=== PATIENT | female | born 1960 | race Caucasian/White ===

== ENCOUNTER → 2018-09-09 14:16 | Outpatient (CLI) | payer OTHER, SELFPAY ==
[2018-09-09 15:03] LABS: BUN Creatinine Ratio 23.3 (6-22); Blood Urea Nitrogen 21 mg/dL (7-17); Calcium 9.1 mg/dL (8.4-10.2); Carbon Dioxide 28 mmol/L (22-32); Chloride 105 mmol/L (98-107); Estimated Glomerular Filt Rate > 60.0 mL/min (>60); Glucose 85 mg/dL (70-100); HEMOLYSIS < 15 (0-50); Potassium 4.3 mmol/L (3.4-5.1); Sodium 138 mmol/L (137-145)
== END ==
PROVIDERS: Family Provider Family Medicine; PCP Family Medicine; Visit Provider Nurse Practitioner Family
DX: Z79.899 Other long term (current) drug therapy (principal)
CPT/HCPCS: 36415; 80048

== ENCOUNTER → 2019-05-16 10:50 | Outpatient (CLI) | payer OTHER, SELFPAY ==
[2019-05-16 11:04] LABS: Add Manual Diff / Slide Review NO; Basophils Absolute Auto 100 /uL (0-100); Basophils Percent Auto 1.4 % (0-2); Eosinophils Absolute Auto 100 /uL (0-450); Eosinophils Percent Auto 1.9 % (2-4); Hematocrit 48.1 % (36-46); Hemoglobin 16.3 g/dL (12.0-16.0); Lymphocytes Absolute Auto 1800 /uL (1100-4500); Lymphocytes Percent Auto 28.1 % (25-40); Mean Corpuscular HGB Conc 33.9 % (30-36); Mean Corpuscular Hemoglobin 30.1 PG (26-34); Mean Corpuscular Volume 88.8 fL (80-100); Monocytes Absolute Auto 400 /uL (0-900); Monocytes Percent Auto 7.1 % (3-14); Neutrophils Absolute Auto 3800 /uL (1500-7000); Neutrophils Percent Auto 61.5 % (50-75); Platelet Count 262 X10^3/uL (150-400); Red Blood Cell Count 5.42 X10^6/uL (4.0-5.2); Red Cell Distribution Width 13.1 % (11.6-14.8); White Blood Cell Count 6.3 X10^3/uL (4.5-11.0)
[2019-05-16 11:42] LABS: Alanine Aminotransferase 25 IU/L (<35); Albumin 4.4 g/dL (3.5-5.0); Albumin Globulin Ratio 1.5 (1.0-2.8); Alkaline Phosphatase 89 U/L (38-126); Aspartate Aminotransferase 33 IU/L (14-36); BUN Creatinine Ratio 27.1 (6-22); Bilirubin Total 0.7 mg/dL (0.2-1.3); Blood Urea Nitrogen 19 mg/dL (7-17); Calcium 9.7 mg/dL (8.4-10.2); Carbon Dioxide 25 mmol/L (22-32); Chloride 104 mmol/L (98-107); Cholesterol 232 mg/dL (140-199); Estimated Glomerular Filt Rate > 60.0 mL/min (>60); Glucose 94 mg/dL (70-100); HDL Cholesterol 64 mg/dL (40-60); HEMOLYSIS 27 (0-50); LDL Cholesterol Calculated 155 mg/dL (<100); Potassium 4.7 mmol/L (3.4-5.1); Sodium 138 mmol/L (137-145); Total Protein 7.4 g/dL (6.3-8.2); Triglycerides 65 mg/dL (35-150)
[2019-05-16 12:13] LABS: Thyroid Stimulating Hormone 0.88 uIU/mL (0.47-4.68)
== END ==
PROVIDERS: Family Provider Family Medicine; PCP Family Medicine; Referring Provider Family Medicine; Visit Provider Family Medicine
DX: I10 Essential (primary) hypertension (principal)
CPT/HCPCS: 36415; 80053; 80061; 84443; 85025

== ENCOUNTER → 2020-08-06 10:20 | Outpatient (CLI) | payer OTHER, SELFPAY ==
[2020-08-06 11:52] LABS: Add Manual Diff / Slide Review NO; Basophils Absolute Auto 100 /uL (0-100); Basophils Percent Auto 1.5 % (0-2); Eosinophils Absolute Auto 200 /uL (0-450); Eosinophils Percent Auto 4.2 % (2-4); Hematocrit 44.9 % (36-46); Hemoglobin 15.5 g/dL (12.0-16.0); Lymphocytes Absolute Auto 1800 /uL (1100-4500); Lymphocytes Percent Auto 32.7 % (25-40); Mean Corpuscular HGB Conc 34.4 % (30-36); Mean Corpuscular Hemoglobin 29.9 PG (26-34); Monocytes Absolute Auto 400 /uL (0-900); Monocytes Percent Auto 7.3 % (3-14); Neutrophils Absolute Auto 2900 /uL (1500-7000); Neutrophils Percent Auto 54.3 % (50-75); Platelet Count 244 X10^3/uL (150-400); Red Blood Cell Count 5.16 X10^6/uL (4.0-5.2); Red Cell Distribution Width 13.3 % (11.6-14.8); White Blood Cell Count 5.4 X10^3/uL (4.5-11.0)
[2020-08-06 12:11] LABS: Alanine Aminotransferase 27 IU/L (<35); Albumin Globulin Ratio 1.4 (1.0-2.8); Alkaline Phosphatase 93 U/L (38-126); Aspartate Aminotransferase 31 IU/L (14-36); BUN Creatinine Ratio 22.7 (6-22); Bilirubin Total 0.4 mg/dL (0.2-1.3); Blood Urea Nitrogen 17 mg/dL (7-17); Calcium 9.6 mg/dL (8.4-10.2); Carbon Dioxide 23 mmol/L (22-32); Chloride 106 mmol/L (98-107); Cholesterol 226 mg/dL (140-199); Estimated Glomerular Filt Rate > 60.0 mL/min (>60); Globulin 2.8 g/dL (1.7-4.1); Glucose 88 mg/dL (70-100); HDL Cholesterol 72 mg/dL (40-60); HEMOLYSIS < 15 (0-50); LDL Cholesterol Calculated 143 mg/dL (<100); Potassium 4.3 mmol/L (3.4-5.1); Sodium 138 mmol/L (137-145); Total Protein 6.8 g/dL (6.3-8.2); Triglycerides 54 mg/dL (35-150)
[2020-08-06 13:21] LABS: Creatinine Urine Random 145.9 mg/dL
[2020-08-06 13:26] LABS: Microalbumi Creatinin Ratio Ur 6.1 ug/mg CR (<30); Microalbumin Urine Random 0.9 mg/dL (0-1.6)
== END ==
PROVIDERS: Family Provider Family Medicine; PCP Family Medicine; Referring Provider Family Medicine; Visit Provider Family Medicine
DX: D58.2 Other hemoglobinopathies (principal); I10 Essential (primary) hypertension
CPT/HCPCS: 36415; 80053; 80061; 82043; 82570; 84443; 85025

== ENCOUNTER → 2020-08-15 07:37 | Outpatient (CLI) | payer OTHER, SELFPAY ==
[2020-08-16 11:21] LABS: Fecal Immunochemical Test Negative (Negative)
== END ==
PROVIDERS: Family Provider Family Medicine; PCP Family Medicine; Referring Provider Family Medicine; Visit Provider Family Medicine
DX: Z00.01 Encounter for general adult medical examination with abnormal findings (principal)
CPT/HCPCS: 82274

== ENCOUNTER → 2020-11-14 11:47 | Outpatient (CLI) | payer OTHER, SELFPAY ==
[2020-11-14 12:48] LABS: COVID19 -Nasal RAPID Negative (Negative)
== END ==
PROVIDERS: Family Provider Family Medicine; PCP Family Medicine; Visit Provider Physician Assistant
DX: J34.89 Other specified disorders of nose and nasal sinuses (principal); R05 Cough; Z20.822 Contact with and (suspected) exposure to COVID-19
CPT/HCPCS: 87635

== ENCOUNTER 2021-04-17 15:00 | Outpatient (RCR) | payer OTHER, SELFPAY ==
--- NOTE | 2021-01-02 16:01 | PT.OIE ---
Current Diagnoses Cystocele, midline (01/02/21) Urgency of urination (01/02/21) Past Medical History (Last Reviewed 11/14/20 @ 12:47 by Osmin Agosto PA-C) Acne Figueroa's palsy (~2003) Chicken pox (~1968) History of hernia repair (~1999) Status post laparoscopic surgery (~1990) Vertigo (~2008) Past Surgical History (Last Updated 08/23/20 @ 19:00 by Kate Russ) Anesthesia History of hernia repair (~1999) Status post laparoscopic surgery (~1990) Visit Care Team Role Provider Type Juventino Teran MD Primary Care Provider Physician Specialty: Family Practice Address: [address] [place] [address] Email: [email or web address] Radha Everett MD Attending Provider Physician Referring Provider Specialty: FISH HATCHERY WORKER Address: [address] [place] [address], [id number] Email: [email or web address] Physical Therapy Initial Evaluation PT-OP-A Visit Information Start: 12/29/20 17:45 Freq: Status: Active Protocol: Document 01/02/21 14:23 LRN (Rec: 01/02/21 15:08 LRN [id number]) Out-Patient Physical Therapy Visit Information Visit Information Visit Type Initial Evaluation Visit Start Time 14:23 Visit Stop Time 15:08 Total Visit Minutes 45 Visit Number 1 Evaluation Information Evaluation Date 01/02/21 Precautions Precautions Controlled HBP, General LBP for years from repetitive use. PT-OP-B Current Condition Start: 12/29/20 17:45 Freq: Status: Active Protocol: Document 01/02/21 14:23 LRN (Rec: 01/02/21 15:08 LRN [id number]) Current Condition History of Current Condition Onset Date 6 months Current Complaints Urinary urgency is the primary problem. Now and again will leak. History of Current Condition Urinary urgency. Has gradually gotten worse over the years and now she feels her organs are further south than they use to be. Prior Treatments and Tests Chiropractic treatment for years for low back pain. Developmental History Developmental History 1 child 31 yrs ago, vaginal without complications. Treatment Goals Patient/Caregiver Goals Pt goal is: not be triggered to urinate when walking by bathroom. to decrease trigger responses (pulling into house, walking into a cold room). 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 Wears pantiliners all the time , since youth. Current Functional Impairments (Reported) Functional Limitations- ADL's Urinating every hour in mornings. In afternoons not as frequent. Occasionally wets underwear. Most of the time barely makes it to the bathroom. Urinates 10x/day and 1x in evening. Personal Factors Other Personal Factors That May Effect Works FT @ [employer] early Therapy/Recovery morning shift, with break every 2 hours. PT-OP-C Subjective Start: 12/29/20 17:45 Freq: Status: Active Protocol: Document 01/02/21 14:23 LRN (Rec: 01/02/21 15:08 LRN [id number]) Patient Questionnaires Pelvic Pain and Urgency/Frequency Patient Symptom Scale Pelvic Pain Score 5 PT-OP-I Pelvic Floor Start: 12/29/20 17:45 Freq: Status: Active Protocol: Document 01/02/21 14:23 LRN (Rec: 01/02/21 15:51 LRN [id number]) Pelvic Floor Assessment Urine Pelvic Floor Surgery No Urinary Symptoms Urge Sensation,Prolapse Leakage Cause Urge Voiding Frequency 10x/day Nocturia 1x/night Urine Pad Type Panty Liner Pelvic Clock Pelvic Clock 3-6 Tightness Prolapse Cystocele Grade 2 Rectocele Grade 2 Prolapse Comments Assessed in supine. Contraction Ability Voluntary Contraction Weak Manual Muscle Testing Left 0 Manual Muscle Testing Right 1 Manual Muscle Testing Anterior 0 Manual Muscle Testing Posterior 0 Muscle Endurance (Seconds) 0 Number of Quick Contractions In 10 0 Seconds PT-OP-J Posture/Palpation/Skin Start: 12/29/20 17:45 Freq: Status: Active Protocol: Document 01/02/21 14:23 LRN (Rec: 01/02/21 15:08 LRN [id number]) Posture Evaluation Position Standing Head/C-Spine Posture Forward Head T-Spine Posture Flattened L-Spine Posture Increased Lordosis Pelvis Posture Anteriorly Tilted PT-OP-K Range of Motion Start: 12/29/20 17:45 Freq: Status: Active Protocol: Document 01/02/21 14:23 LRN (Rec: 01/02/21 15:08 LRN [id number]) Lumbar Spine Range of Motion Lumbar Spine Active Degrees Testing Position Standing Flexion 75 Extension 15 Lateral Flexion Left 15 Lateral Flexion Right 12 Hip Goniometric Range of Motion Hip Right Passive Testing Position Supine Flexion w/Knee Flexed 120 Straight Leg Raise 85 Internal Rotation 50 External Rotation 40 Left Passive Testing Position Supine Flexion w/Knee Flexed 110 Straight Leg Raise 80 Internal Rotation 35 External Rotation 50 PT-OP-M Strength Start: 12/29/20 17:45 Freq: Status: Active Protocol: Document 01/02/21 14:23 LRN (Rec: 01/02/21 15:08 LRN [id number]) Trunk Strength Trunk Manual Muscle Testing Testing Position Supine, Sidelie, Prone Comments Lacks core control w/MMT of LE 's. Hip Strength Hip Manual Muscle Testing Right Flexion (L2) 5 Normal Extension (S1) 3 Fair Abduction 5 Normal Adduction 3 Fair External Rotation 5 Normal Internal Rotation 5 Normal Left Flexion (L2) 3+ Fair+ Extension (S1) 3 Fair Abduction 5 Normal Adduction 3+ Fair+ External Rotation 3 Fair Internal Rotation 5 Normal PT-OP-Q Treatments Start: 12/29/20 17:45 Freq: Status: Active Protocol: Document 01/02/21 14:23 LRN (Rec: 01/02/21 15:08 LRN [id number]) Self-Care/Home Management Treatment Education Patient Education Home Exercise Program Other Education Discussed results of evaluation, goals and plan of care. Pt agreeable to goals and plan of care. Educated pt in Bladder Diary and instructed in tracking for 1 weeks. Discussed use of 2 different diaries for tracking . Activities Self-Care/Home Management Activities Issued & reviewed handouts for [employer] for Quick Flicks, Long Hololds & discussed aggrevators. PT-OP-T Assessment and Plan Start: 12/29/20 17:45 Freq: Status: Active Protocol: Document 01/02/21 14:23 LRN (Rec: 01/02/21 15:08 LRN [id number]) Physical Therapy Assessment Rehab Potential Rehabilitation Potential Good Evaluation Complexity Number of Personal Factors/Comorbidities 1-2 Number of Body Systems Impaired 3 Clinical Presentation at Evaluation Stable Impairments Impairments Posture,ROM,Strength Goals Three Impairment Decreased PF strength (0-1/5) Impairment 7-10 O'Clock rated 1/5, 2-6 O'Clock 0/5. Short Term Goal (STG) Improve PF strength to 2/5 with pt will be able to walk by her bathroom without having to stop to urinate. STG Duration 02/01/21 Supervisor Riprap Placing Goal (LTG) Improve PF strength to 3/5 with pt able to hold a PF contraction no less than 3 secs and perform 5-6 quick squeezes prior to fatigue, for delaying urination with the delay technique. LTG Duration 03/17/21 Two Impairment Urinary urgency Short Term Goal (STG) Pt will be educated in urinary delay technique. STG Duration 01/09/21 Supervisor Riprap Placing Goal (LTG) Pt will be able to control her urgency when pulling up to her house and walk into the cold room of her work place. LTG Duration 03/17/21 One Impairment Lacks appropriate self care HEP. Supervisor Riprap Placing Goal (LTG) Pt will be independent in a self care HEP of hip/LB flexibility ex's & PF strengthening. LTG Duration 03/17/21 Assessment Summary Assessment Pt presents with urinary urgency and occasional urinary leakage that is severe in nature, wetting her underwear. Most of the time her leakage is small and she wears daily pantiliners. Her external PF tissues appear dry. She demonstrates a cystocele and rectocele with the rectocele worsening with valsa type manuever. With palpation she shows extreme weakness of the PF and has no palpable contraction of the posterior, left lateral wall and anterior PF. She has very minimal palpable contraction on the right lateral wall. The pt denies constipation history. Her postural deviations ( excessive lumbar lordosis) and chronic back pain may be a hindrance to the pt's progression. The pt will benefit from skilled physical therapy to work towards achieving the above stated goals. Physical Therapy Plan Frequency and Duration Frequency of Treatment 1x/Week Plan of Care Start Date 01/02/21 Plan of Care End Date 03/17/21 Therapeutic Interventions Therapeutic Interventions Home Exercise Program,Joint Mobilizations,Manual Therapy, Neuromuscular Re-education, Patient/Caregiver Education, Self-Care/Home Management,Soft Tissue Mobilization,Taping, Therapeutic Activities, Therapeutic Exercises Modalities Cold Pack/Ice Massage,Electric Stimulation,Hot Packs Next Visit Focus/Plan Next Visit Plan Review bladder diary, discuss foods, and water intake, Kegel with use of substitute muscles, pt education in proper vulvar/ genital care, deep breathing and transfers, PF/core activation, hip strengthening (AD, ext, only L side: flex, ER), improve hip mobility (L: IR, KTC SLR; R: ER), Assess abdominal soft tissue ( bladder) mobility. TA strengthening, educate pt in proper squatting and lifting, sit to stand, and moving in bed using breathwork and PF/core stabilization for proper abdominal pressure system, teach isolated Kegels for exercise and auto TA/PF contraction for pelvic stabilization.
--- NOTE | 2021-01-02 16:02 | PT.OPPOC ---
Physical, Occupational & Speech Therapy At [facility] Current Diagnoses Cystocele, midline (01/02/21) Urgency of urination (01/02/21) Visit Care Team Role Provider Type Juventino Teran MD Primary Care Provider Physician Specialty: Family Practice Address: [address] [place] [address] Email: [email or web address] Radha Everett MD Attending Provider Physician Referring Provider Specialty: TOE STRIPPER Address: [address] [place] [address], [address] Email: [email or web address] Plan Of Care PT-OP-T Assessment and Plan Start: 12/29/20 17:45 Freq: Status: Active Protocol: Document 01/02/21 14:23 LRN (Rec: 01/02/21 15:08 LRN [id number]) Physical Therapy Assessment Rehab Potential Rehabilitation Potential Good Evaluation Complexity Number of Personal Factors/Comorbidities 1-2 Number of Body Systems Impaired 3 Clinical Presentation at Evaluation Stable Impairments Impairments Posture,ROM,Strength Goals Three Impairment Decreased PF strength (0-1/5) Impairment 7-10 O'Clock rated 1/5, 2-6 O'Clock 0/5. Short Term Goal (STG) Improve PF strength to 2/5 with pt will be able to walk by her bathroom without having to stop to urinate. STG Duration 02/01/21 Tumbling Instructor Goal (LTG) Improve PF strength to 3/5 with pt able to hold a PF contraction no less than 3 secs and perform 5-6 quick squeezes prior to fatigue, for delaying urination with the delay technique. LTG Duration 03/17/21 Two Impairment Urinary urgency Short Term Goal (STG) Pt will be educated in urinary delay technique. STG Duration 01/09/21 Tumbling Instructor Goal (LTG) Pt will be able to control her urgency when pulling up to her house and walk into the cold room of her work place. LTG Duration 03/17/21 One Impairment Lacks appropriate self care HEP. Long-Term Goal (LTG) Pt will be independent in a self care HEP of hip/LB flexibility ex's & PF strengthening. LTG Duration 03/17/21 Assessment Summary Assessment Pt presents with urinary urgency and occasional urinary leakage that is severe in nature, wetting her underwear. Most of the time her leakage is small and she wears daily pantiliners. Her external PF tissues appear dry. She demonstrates a cystocele and rectocele with the rectocele worsening with valsa type manuever. With palpation she shows extreme weakness of the PF and has no palpable contraction of the posterior, left lateral wall and anterior PF. She has very minimal palpable contraction on the right lateral wall. The pt denies constipation history. Her postural deviations ( excessive lumbar lordosis) and chronic back pain may be a hindrance to the pt's progression. The pt will benefit from skilled physical therapy to work towards achieving the above stated goals. Physical Therapy Plan Frequency and Duration Frequency of Treatment 1x/Week Plan of Care Start Date 01/02/21 Plan of Care End Date 03/17/21 Therapeutic Interventions Therapeutic Interventions Home Exercise Program,Joint Mobilizations,Manual Therapy, Neuromuscular Re-education, Patient/Caregiver Education, Self-Care/Home Management,Soft Tissue Mobilization,Taping, Therapeutic Activities, Therapeutic Exercises Modalities Cold Pack/Ice Massage,Electric Stimulation,Hot Packs Next Visit Focus/Plan Next Visit Plan Review bladder diary, discuss foods, and water intake, Kegel with use of substitute muscles, pt education in proper vulvar/ genital care, deep breathing and transfers, PF/core activation, hip strengthening (AD, ext, only L side: flex, ER), improve hip mobility (L: IR, KTC SLR; R: ER), Assess abdominal soft tissue ( bladder) mobility. TA strengthening, educate pt in proper squatting and lifting, sit to stand, and moving in bed using breathwork and PF/core stabilization for proper abdominal pressure system, teach isolated Kegels for exercise and auto TA/PF contraction for pelvic stabilization. Plan of Care Dates Plan of Care Start Date 01/02/21 Plan of Care End Date 03/17/21 Electronically Signed by: Cielo Coyne, PT 01/02/21 [id number] Please Sign and Return: I have reviewed this Plan of Care and certify that the skilled therapy services above are required to meet the patient?s needs. Physician Signature Date Printed Name and Credentials Clinical Instructor Signature Printed Name and Credentials
--- NOTE | 2021-01-09 15:27 | PT.OTN ---
Current Diagnoses Cystocele, midline (01/09/21) Urgency of urination (01/09/21) Physical Therapy Treatment Note PT-OP-A Visit Information Start: 12/29/20 17:45 Freq: Status: Active Protocol: Document 01/09/21 14:21 LRN (Rec: 01/09/21 15:25 LRN [id number]) Out-Patient Physical Therapy Visit Information Visit Information Visit Type Treatment Note Visit Start Time 14:21 Visit Stop Time 15:02 Total Visit Minutes 41 Visit Number 2 Evaluation Information Evaluation Date 01/02/21 Precautions Precautions Controlled HBP, General LBP for years from repetitive use. PT-OP-B Current Condition Start: 12/29/20 17:45 Freq: Status: Active Protocol: Document 01/02/21 14:23 LRN (Rec: 01/02/21 15:08 LRN [id number]) Current Condition History of Current Condition Onset Date 6 months Current Complaints Urinary urgency is the primary problem. Now and again will leak. History of Current Condition Urinary urgency. Has gradually gotten worse over the years and now she feels her organs are further south than they use to be. Prior Treatments and Tests Chiropractic treatment for years for low back pain. Developmental History Developmental History 1 child 31 yrs ago, vaginal without complications. Treatment Goals Patient/Caregiver Goals Pt goal is: not be triggered to urinate when walking by bathroom. to decrease trigger responses (pulling into house, walking into a cold room). 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 Wears pantiliners all the time , since youth. Current Functional Impairments (Reported) Functional Limitations- ADL's Urinating every hour in mornings. In afternoons not as frequent. Occasionally wets underwear. Most of the time barely makes it to the bathroom. Urinates 10x/day and 1x in evening. Personal Factors Other Personal Factors That May Effect Works FT @ [employer] early Therapy/Recovery morning shift, with break every 2 hours. PT-OP-C Subjective Start: 12/29/20 17:45 Freq: Status: Active Protocol: Document 01/09/21 14:21 LRN (Rec: 01/09/21 15:25 LRN [id number]) OP-PT Subjective Patient Comments Patient Comments Did bladder diary. Less urge to urinate when passing the bathroom. PT-OP-I Pelvic Floor Start: 12/29/20 17:45 Freq: Status: Active Protocol: Document 01/02/21 14:23 LRN (Rec: 01/02/21 15:51 LRN [id number]) Pelvic Floor Assessment Urine Pelvic Floor Surgery No Urinary Symptoms Urge Sensation,Prolapse Leakage Cause Urge Voiding Frequency 10x/day Nocturia 1x/night Urine Pad Type Panty Liner Pelvic Clock Pelvic Clock 3-6 Tightness Prolapse Cystocele Grade 2 Rectocele Grade 2 Prolapse Comments Assessed in supine. Contraction Ability Voluntary Contraction Weak Manual Muscle Testing Left 0 Manual Muscle Testing Right 1 Manual Muscle Testing Anterior 0 Manual Muscle Testing Posterior 0 Muscle Endurance (Seconds) 0 Number of Quick Contractions In 10 0 Seconds PT-OP-J Posture/Palpation/Skin Start: 12/29/20 17:45 Freq: Status: Active Protocol: Document 01/02/21 14:23 LRN (Rec: 01/02/21 15:08 LRN [id number]) Posture Evaluation Position Standing Head/C-Spine Posture Forward Head T-Spine Posture Flattened L-Spine Posture Increased Lordosis Pelvis Posture Anteriorly Tilted PT-OP-K Range of Motion Start: 12/29/20 17:45 Freq: Status: Active Protocol: Document 01/02/21 14:23 LRN (Rec: 01/02/21 15:08 LRN [id number]) Lumbar Spine Range of Motion Lumbar Spine Active Degrees Testing Position Standing Flexion 75 Extension 15 Lateral Flexion Left 15 Lateral Flexion Right 12 Hip Goniometric Range of Motion Hip Right Passive Testing Position Supine Flexion w/Knee Flexed 120 Straight Leg Raise 85 Internal Rotation 50 External Rotation 40 Left Passive Testing Position Supine Flexion w/Knee Flexed 110 Straight Leg Raise 80 Internal Rotation 35 External Rotation 50 PT-OP-M Strength Start: 12/29/20 17:45 Freq: Status: Active Protocol: Document 01/02/21 14:23 LRN (Rec: 01/02/21 15:08 LRN [id number]) Trunk Strength Trunk Manual Muscle Testing Testing Position Supine, Sidelie, Prone Comments Lacks core control w/MMT of LE 's. Hip Strength Hip Manual Muscle Testing Right Flexion (L2) 5 Normal Extension (S1) 3 Fair Abduction 5 Normal Adduction 3 Fair External Rotation 5 Normal Internal Rotation 5 Normal Left Flexion (L2) 3+ Fair+ Extension (S1) 3 Fair Abduction 5 Normal Adduction 3+ Fair+ External Rotation 3 Fair Internal Rotation 5 Normal PT-OP-Q Treatments Start: 12/29/20 17:45 Freq: Status: Active Protocol: Document 01/09/21 14:21 LRN (Rec: 01/09/21 15:25 LRN [id number]) Therapeutic Exercises Standing Exercises PF in Hamstring stretch position Standing Exercise Name PF contractions in hamstring stretch position & hip ER/IR Reps/Minutes 3' Comments Extra time for proper positioning and awareness educ of bladder positioning Self-Care/Home Management Treatment Education Other Education Review of bladder diary f/b education extensive discussions regarding: - Bladder Retraining (urge deference), - Foods/drinks theories/ suggestions (2 handouts) - Deep breathing properly with PF contractions. - Abdominal bracing with PF contractions. - PF/organs anatomy and associated cystocele, rectocele, uterocele and effects on each other. Activities Self-Care/Home Management Activities Issued handouts for bladder retraining (urge deference), food/drinks. PT-OP-T Assessment and Plan Start: 12/29/20 17:45 Freq: Status: Active Protocol: Document 01/09/21 14:21 LRN (Rec: 01/09/21 15:25 LRN [id number]) Physical Therapy Assessment Goals Three Impairment Decreased PF strength (0-1/5) Impairment 7-10 O'Clock rated 1/5, 2-6 O'Clock 0/5. Short Term Goal (STG) Improve PF strength to 2/5 with pt will be able to walk by her bathroom without having to stop to urinate. STG Duration 02/01/21 Vice President For Philanthropy Goal (LTG) Improve PF strength to 3/5 with pt able to hold a PF contraction no less than 3 secs and perform 5-6 quick squeezes prior to fatigue, for delaying urination with the delay technique. LTG Duration 03/17/21 Two Impairment Urinary urgency Short Term Goal (STG) Pt will be educated in urinary delay technique. STG Duration 01/09/21 (01/09/21: MET GOAL) Vice President For Philanthropy Goal (LTG) Pt will be able to control her urgency when pulling up to her house and walk into the cold room of her work place. LTG Duration 03/17/21 One Impairment Lacks appropriate self care HEP. Vice President For Philanthropy Goal (LTG) Pt will be independent in a self care HEP of hip/LB flexibility ex's & PF strengthening. LTG Duration 03/17/21 Assessment Summary Assessment Pt urgency probably related to pt taking caffeine pill in morning caffeine drinks ( coffee/tea) during the day. Urgency appears to be first in the morning. She was voiding 8-12x/days for the first 2 days, then ~7x/day with no significant change in her drinking schedule. Voiding times are mostly normal between 4-8 secs (most in PM and 1st in AM). Pt avoids water due to the increased voiding frequency when drinking water. If she maintains her current frequency of 7x/day, then focus will be on decreasing her prolapse with exercise and proper PF care. Physical Therapy Plan Frequency and Duration Frequency of Treatment 1x/Week Plan of Care Start Date 01/02/21 Plan of Care End Date 03/17/21 Next Visit Focus/Plan Next Note Type Treatment Note Next Visit Plan Kegel with use of substitute muscles, pt education in proper vulvar/ genital care, and PF/breathing with transfers, PF/core activation, hip strengthening (AD, ext, only L side: flex, ER), improve hip mobility (L: IR, KTC SLR; R: ER), Assess abdominal soft tissue ( bladder) mobility. TA strengthening, educate pt in proper squatting and lifting, sit to stand, and moving in bed using breathwork and PF/core stabilization for proper abdominal pressure system, teach isolated Kegels for exercise and auto TA/PF contraction for pelvic stabilization.
--- NOTE | 2021-01-23 17:04 | PT.OTN ---
Current Diagnoses Cystocele, midline (01/23/21) Urgency of urination (01/23/21) Physical Therapy Treatment Note PT-OP-A Visit Information Start: 12/29/20 17:45 Freq: Status: Active Protocol: Document 01/23/21 14:22 LRN (Rec: 01/23/21 15:07 LRN [id number]) Out-Patient Physical Therapy Visit Information Visit Information Visit Type Treatment Note Visit Start Time 14:22 Visit Stop Time 15:02 Total Visit Minutes 40 Visit Number 3 Evaluation Information Evaluation Date 01/02/21 Precautions Precautions Controlled HBP, General LBP for years from repetitive use. PT-OP-B Current Condition Start: 12/29/20 17:45 Freq: Status: Active Protocol: Document 01/02/21 14:23 LRN (Rec: 01/02/21 15:08 LRN [id number]) Current Condition History of Current Condition Onset Date 6 months Current Complaints Urinary urgency is the primary problem. Now and again will leak. History of Current Condition Urinary urgency. Has gradually gotten worse over the years and now she feels her organs are further south than they use to be. Prior Treatments and Tests Chiropractic treatment for years for low back pain. Developmental History Developmental History 1 child 31 yrs ago, vaginal without complications. Treatment Goals Patient/Caregiver Goals Pt goal is: not be triggered to urinate when walking by bathroom. to decrease trigger responses (pulling into house, walking into a cold room). 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 Wears pantiliners all the time , since youth. Current Functional Impairments (Reported) Functional Limitations- ADL's Urinating every hour in mornings. In afternoons not as frequent. Occasionally wets underwear. Most of the time barely makes it to the bathroom. Urinates 10x/day and 1x in evening. Personal Factors Other Personal Factors That May Effect Works FT @ [employer] early Therapy/Recovery morning shift, with break every 2 hours. PT-OP-C Subjective Start: 12/29/20 17:45 Freq: Status: Active Protocol: Document 01/23/21 14:22 LRN (Rec: 01/23/21 15:07 LRN [id number]) OP-PT Subjective Patient Comments Patient Comments No change. Being more mindful of the caffeine she drinks. Having urgency for the past few days. PT-OP-I Pelvic Floor Start: 12/29/20 17:45 Freq: Status: Active Protocol: Document 01/02/21 14:23 LRN (Rec: 01/02/21 15:51 LRN [id number]) Pelvic Floor Assessment Urine Pelvic Floor Surgery No Urinary Symptoms Urge Sensation,Prolapse Leakage Cause Urge Voiding Frequency 10x/day Nocturia 1x/night Urine Pad Type Panty Liner Pelvic Clock Pelvic Clock 3-6 Tightness Prolapse Cystocele Grade 2 Rectocele Grade 2 Prolapse Comments Assessed in supine. Contraction Ability Voluntary Contraction Weak Manual Muscle Testing Left 0 Manual Muscle Testing Right 1 Manual Muscle Testing Anterior 0 Manual Muscle Testing Posterior 0 Muscle Endurance (Seconds) 0 Number of Quick Contractions In 10 0 Seconds PT-OP-J Posture/Palpation/Skin Start: 12/29/20 17:45 Freq: Status: Active Protocol: Document 01/02/21 14:23 LRN (Rec: 01/02/21 15:08 LRN [id number]) Posture Evaluation Position Standing Head/C-Spine Posture Forward Head T-Spine Posture Flattened L-Spine Posture Increased Lordosis Pelvis Posture Anteriorly Tilted PT-OP-K Range of Motion Start: 12/29/20 17:45 Freq: Status: Active Protocol: Document 01/02/21 14:23 LRN (Rec: 01/02/21 15:08 LRN [id number]) Lumbar Spine Range of Motion Lumbar Spine Active Degrees Testing Position Standing Flexion 75 Extension 15 Lateral Flexion Left 15 Lateral Flexion Right 12 Hip Goniometric Range of Motion Hip Right Passive Testing Position Supine Flexion w/Knee Flexed 120 Straight Leg Raise 85 Internal Rotation 50 External Rotation 40 Left Passive Testing Position Supine Flexion w/Knee Flexed 110 Straight Leg Raise 80 Internal Rotation 35 External Rotation 50 PT-OP-M Strength Start: 12/29/20 17:45 Freq: Status: Active Protocol: Document 01/02/21 14:23 LRN (Rec: 01/02/21 15:08 LRN [id number]) Trunk Strength Trunk Manual Muscle Testing Testing Position Supine, Sidelie, Prone Comments Lacks core control w/MMT of LE 's. Hip Strength Hip Manual Muscle Testing Right Flexion (L2) 5 Normal Extension (S1) 3 Fair Abduction 5 Normal Adduction 3 Fair External Rotation 5 Normal Internal Rotation 5 Normal Left Flexion (L2) 3+ Fair+ Extension (S1) 3 Fair Abduction 5 Normal Adduction 3+ Fair+ External Rotation 3 Fair Internal Rotation 5 Normal PT-OP-Q Treatments Start: 12/29/20 17:45 Freq: Status: Active Protocol: Document 01/23/21 14:22 LRN (Rec: 01/23/21 15:07 LRN [id number]) Therapeutic Exercises Supine Exercises PF isolated contraction Supine Exercise Name Isolated PF contraction training Reps/Minutes 8' Comments Pt not able to isolate a PF contraction form the TA. Standing Exercises PF in Hamstring stretch position Standing Exercise Name PF contractions in hamstring stretch position & hip ER/IR Reps/Minutes 2' Therapeutic Activity Therapeutic Activity PF w/Sit<>Supine Name PF w/Sit<>Supine Reps/Minutes 3' Comments Training with sound of breathing. PF w/Sit to stand Name PF w/Sit<>stand Reps/Minutes 3' Comments Training with sound of breathing. Manual Therapy Treatment Soft Tissue Mobilization Iliopsoas Body Location R Iliopsoas Mobilization Type Myofascial Release,Sustained Pressure Body Position Supine Sacrum Body Location Inferior glide & PA mob L side of L sacrum Mobilization Type Myofascial Release Body Position Prone Rebalancing of Ischium and Ilium Body Location Ischium & Ilium Rebalancing, Ischium PA Mob Mobilization Type Myofascial Release,Sustained Pressure Body Position Prone Self-Care/Home Management Treatment Education Patient Education Home Exercise Program Activities Self-Care/Home Management Activities I/S pt in PF contraction in isolatioin of TA & Glut,and SKTC stretch. Issued & reviewed HEP: L Piriformis stretch and lateral hip stretch. PT-OP-T Assessment and Plan Start: 12/29/20 17:45 Freq: Status: Active Protocol: Document 01/23/21 14:22 LRN (Rec: 01/23/21 15:07 LRN [id number]) Physical Therapy Assessment Goals Three Impairment Decreased PF strength (0-1/5) Impairment 7-10 O'Clock rated 1/5, 2-6 O'Clock 0/5. Short Term Goal (STG) Improve PF strength to 2/5 with pt will be able to walk by her bathroom without having to stop to urinate. STG Duration 02/01/21 Electronic Publications Specialist Goal (LTG) Improve PF strength to 3/5 with pt able to hold a PF contraction no less than 3 secs and perform 5-6 quick squeezes prior to fatigue, for delaying urination with the delay technique. LTG Duration 03/17/21 Two Impairment Urinary urgency Short Term Goal (STG) Pt will be educated in urinary delay technique. STG Duration 01/09/21 (01/09/21: MET GOAL) Intermediate Goal (LTG) Pt will be able to control her urgency when pulling up to her house and walk into the cold room of her work place. LTG Duration 03/17/21 One Impairment Lacks appropriate self care HEP. Electronic Publications Specialist Goal (LTG) Pt will be independent in a self care HEP of hip/LB flexibility ex's & PF strengthening. LTG Duration 03/17/21 Assessment Summary Assessment + response to STM. Pt symmetry of contraction of PF felt in bilateral TA on contraction and elimination of R LBP in supine with PF tightening. Pt has fair understanding of L hip stretches; therefore review is needed. Physical Therapy Plan Frequency and Duration Frequency of Treatment 1x/Week Plan of Care Start Date 01/02/21 Plan of Care End Date 03/17/21 Next Visit Focus/Plan Next Note Type Treatment Note Next Visit Plan Review Kegel in isolation of TA & Hip Flexors, review L hip IR and SKTC stretch, Kegel with auto use of substitute muscles, pt education in proper vulvar/ genital care, PF/core activation, hip strengthening (AD, ext, only L side: flex, ER), improve hip mobility (L: SLR; R: ER), Assess abdominal soft tissue ( bladder) mobility. TA strengthening, educate pt in proper squatting and lifting, sit to stand, and moving in bed using breathwork and PF/core stabilization for proper abdominal pressure system, teach auto TA/PF contraction for pelvic stabilization.
--- NOTE | 2021-01-30 16:24 | PT.OTN ---
Current Diagnoses Cystocele, midline (01/30/21) Urgency of urination (01/30/21) Physical Therapy Treatment Note PT-OP-A Visit Information Start: 12/29/20 17:45 Freq: Status: Active Protocol: Document 01/30/21 15:17 LRN (Rec: 01/30/21 16:19 LRN [id number]) Out-Patient Physical Therapy Visit Information Visit Information Visit Type Treatment Note Visit Start Time 15:17 Visit Stop Time 15:57 Total Visit Minutes 40 Evaluation Information Evaluation Date 01/02/21 Precautions Precautions Controlled HBP, General LBP for years from repetitive use. PT-OP-B Current Condition Start: 12/29/20 17:45 Freq: Status: Active Protocol: Document 01/02/21 14:23 LRN (Rec: 01/02/21 15:08 LRN [id number]) Current Condition History of Current Condition Onset Date 6 months Current Complaints Urinary urgency is the primary problem. Now and again will leak. History of Current Condition Urinary urgency. Has gradually gotten worse over the years and now she feels her organs are further south than they use to be. Prior Treatments and Tests Chiropractic treatment for years for low back pain. Developmental History Developmental History 1 child 31 yrs ago, vaginal without complications. Treatment Goals Patient/Caregiver Goals Pt goal is: not be triggered to urinate when walking by bathroom. to decrease trigger responses (pulling into house, walking into a cold room). 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 Wears pantiliners all the time , since youth. Current Functional Impairments (Reported) Functional Limitations- ADL's Urinating every hour in mornings. In afternoons not as frequent. Occasionally wets underwear. Most of the time barely makes it to the bathroom. Urinates 10x/day and 1x in evening. Personal Factors Other Personal Factors That May Effect Works FT @ [employer] early Therapy/Recovery morning shift, with break every 2 hours. PT-OP-C Subjective Start: 12/29/20 17:45 Freq: Status: Active Protocol: Document 01/30/21 15:17 LRN (Rec: 01/30/21 16:19 LRN [id number]) OP-PT Subjective Patient Comments Patient Comments One incident had instanteous urge upon standing with a little leakage because able to stop the flow. Not able to stop flow before. PT-OP-I Pelvic Floor Start: 12/29/20 17:45 Freq: Status: Active Protocol: Document 01/30/21 15:17 LRN (Rec: 01/30/21 16:23 LRN [id number]) Pelvic Floor Assessment SEMG (uV) Baseline 0.6 Quick Contraction 5.2 10 Second Contraction 4.8 Recruitment Pattern Good Relaxation Good Holding Fair Stability of Hold Fair SEMG Stability of Rest Good PT-OP-J Posture/Palpation/Skin Start: 12/29/20 17:45 Freq: Status: Active Protocol: Document 01/02/21 14:23 LRN (Rec: 01/02/21 15:08 LRN [id number]) Posture Evaluation Position Standing Head/C-Spine Posture Forward Head T-Spine Posture Flattened L-Spine Posture Increased Lordosis Pelvis Posture Anteriorly Tilted PT-OP-K Range of Motion Start: 12/29/20 17:45 Freq: Status: Active Protocol: Document 01/02/21 14:23 LRN (Rec: 01/02/21 15:08 LRN [id number]) Lumbar Spine Range of Motion Lumbar Spine Active Degrees Testing Position Standing Flexion 75 Extension 15 Lateral Flexion Left 15 Lateral Flexion Right 12 Hip Goniometric Range of Motion Hip Right Passive Testing Position Supine Flexion w/Knee Flexed 120 Straight Leg Raise 85 Internal Rotation 50 External Rotation 40 Left Passive Testing Position Supine Flexion w/Knee Flexed 110 Straight Leg Raise 80 Internal Rotation 35 External Rotation 50 PT-OP-M Strength Start: 12/29/20 17:45 Freq: Status: Active Protocol: Document 01/02/21 14:23 LRN (Rec: 01/02/21 15:08 LRN [id number]) Trunk Strength Trunk Manual Muscle Testing Testing Position Supine, Sidelie, Prone Comments Lacks core control w/MMT of LE 's. Hip Strength Hip Manual Muscle Testing Right Flexion (L2) 5 Normal Extension (S1) 3 Fair Abduction 5 Normal Adduction 3 Fair External Rotation 5 Normal Internal Rotation 5 Normal Left Flexion (L2) 3+ Fair+ Extension (S1) 3 Fair Abduction 5 Normal Adduction 3+ Fair+ External Rotation 3 Fair Internal Rotation 5 Normal PT-OP-Q Treatments Start: 12/29/20 17:45 Freq: Status: Active Protocol: Document 01/30/21 15:17 LRN (Rec: 01/30/21 16:19 LRN [id number]) Therapeutic Exercises Supine Exercises PF Long holds Supine Exercise Name 10 sec holds Reps/Minutes 7' Comments Reviewed with pt outcome PF Quick Flicks Supine Exercise Name 1-2 sec holds Reps/Minutes 4' Comments Reviewed with pt outcome PF Baseline Supine Exercise Name Resting baseline Reps/Minutes 10' Comments Extra time for set up and testing Fig 4 stretch Supine Exercise Name Fig 4 stretch, R>L Side bilateral Reps/Minutes 5' Comments Extra time for training. KTC stretch Supine Exercise Name KTC stretch Side bilateral Reps/Minutes 4' Hip IR stretch Supine Exercise Name L>R Piriformis stretch Side bilateral Reps/Minutes 4' PF isolated contraction Supine Exercise Name Isolated PF contraction training Reps/Minutes 6' Comments Pt not able to isolate a PF contraction form the TA. Self-Care/Home Management Treatment Education Patient Education Home Exercise Program Activities Self-Care/Home Management Activities Issued & reviewed HEP: FIg 4 stretch, R>L. PT-OP-T Assessment and Plan Start: 12/29/20 17:45 Freq: Status: Active Protocol: Document 01/30/21 15:17 LRN (Rec: 01/30/21 16:19 LRN [id number]) Physical Therapy Assessment Goals Three Impairment Decreased PF strength (0-1/5) Impairment 7-10 O'Clock rated 1/5, 2-6 O'Clock 0/5. Short Term Goal (STG) Improve PF strength to 2/5 with pt will be able to walk by her bathroom without having to stop to urinate. STG Duration 02/01/21 Parts Department Manager Goal (LTG) Improve PF strength to 3/5 with pt able to hold a PF contraction no less than 3 secs and perform 5-6 quick squeezes prior to fatigue, for delaying urination with the delay technique. LTG Duration 03/17/21 Two Impairment Urinary urgency Short Term Goal (STG) Pt will be educated in urinary delay technique. STG Duration 01/09/21 (01/09/21: MET GOAL) Parts Department Manager Goal (LTG) Pt will be able to control her urgency when pulling up to her house and walk into the cold room of her work place. LTG Duration 03/17/21 One Impairment Lacks appropriate self care HEP. Senior Care Goal (LTG) Pt will be independent in a self care HEP of hip/LB flexibility ex's & PF strengthening. (01/30/21: Added to HEP R hip ER stretch) LTG Duration 03/17/21 Progress Towards Goals Progress Comments Progressed HEP. Assessment Summary Assessment Good isolation of Kegel with PF contraction. Pt appears to have a good understanding of her HEP stretches. Per EMG ex pt has low resting tone (0. 6mV), decreased Quick Flicks and Long Hold contractions (5. 2 mV & 4.8 mV, respectively. Pt urge leakage on standing may be due to pressure changes in abdominal cavity; therefore discuss proper breathing with transfers and educate in appropiate clothing wear. Physical Therapy Plan Frequency and Duration Frequency of Treatment 1x/Week Plan of Care Start Date 01/02/21 Plan of Care End Date 03/17/21 Next Visit Focus/Plan Next Note Type Treatment Note Next Visit Plan Teach kegel with automatic use of substitute muscles, pt education in proper vulvar/ genital care, PF/core activation. Add hip stretch for L SLR. Add hip strengthening (AD, ext , only L side: flex, ER), Assess abdominal soft tissue ( bladder) mobility. TA strengthening, educate pt in proper squatting and lifting, sit to stand, and moving in bed using breathwork and PF/core stabilization for proper abdominal pressure system, teach auto TA/PF contraction for pelvic stabilization.
--- NOTE | 2021-02-06 16:14 | PT.OTN ---
Current Diagnoses Cystocele, midline (02/06/21) Urgency of urination (02/06/21) Physical Therapy Treatment Note PT-OP-A Visit Information Start: 12/29/20 17:45 Freq: Status: Active Protocol: Document 02/06/21 15:09 LRN (Rec: 02/06/21 15:59 LRN [id number]) Out-Patient Physical Therapy Visit Information Visit Information Visit Type Treatment Note Visit Start Time 15:09 Visit Stop Time 15:49 Total Visit Minutes 40 Visit Number 5 Evaluation Information Evaluation Date 01/02/21 Precautions Precautions Controlled HBP, General LBP for years from repetitive use. PT-OP-B Current Condition Start: 12/29/20 17:45 Freq: Status: Active Protocol: Document 01/02/21 14:23 LRN (Rec: 01/02/21 15:08 LRN [id number]) Current Condition History of Current Condition Onset Date 6 months Current Complaints Urinary urgency is the primary problem. Now and again will leak. History of Current Condition Urinary urgency. Has gradually gotten worse over the years and now she feels her organs are further south than they use to be. Prior Treatments and Tests Chiropractic treatment for years for low back pain. Developmental History Developmental History 1 child 31 yrs ago, vaginal without complications. Treatment Goals Patient/Caregiver Goals Pt goal is: not be triggered to urinate when walking by bathroom. to decrease trigger responses (pulling into house, walking into a cold room). 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 Wears pantiliners all the time , since youth. Current Functional Impairments (Reported) Functional Limitations- ADL's Urinating every hour in mornings. In afternoons not as frequent. Occasionally wets underwear. Most of the time barely makes it to the bathroom. Urinates 10x/day and 1x in evening. Personal Factors Other Personal Factors That May Effect Works FT @ [employer] early Therapy/Recovery morning shift, with break every 2 hours. PT-OP-C Subjective Start: 12/29/20 17:45 Freq: Status: Active Protocol: Document 02/06/21 15:09 LRN (Rec: 02/06/21 15:59 LRN [id number]) OP-PT Subjective Patient Comments Patient Comments Has been good with urgency except today, was standing and reaching up and had an urge ( previously urinated a couple hours earlier, and urination time was short). PT-OP-I Pelvic Floor Start: 12/29/20 17:45 Freq: Status: Active Protocol: Document 01/30/21 15:17 LRN (Rec: 01/30/21 16:23 LRN [id number]) Pelvic Floor Assessment SEMG (uV) Baseline 0.6 Quick Contraction 5.2 10 Second Contraction 4.8 Recruitment Pattern Good Relaxation Good Holding Fair Stability of Hold Fair SEMG Stability of Rest Good PT-OP-J Posture/Palpation/Skin Start: 12/29/20 17:45 Freq: Status: Active Protocol: Document 01/02/21 14:23 LRN (Rec: 01/02/21 15:08 LRN [id number]) Posture Evaluation Position Standing Head/C-Spine Posture Forward Head T-Spine Posture Flattened L-Spine Posture Increased Lordosis Pelvis Posture Anteriorly Tilted PT-OP-K Range of Motion Start: 12/29/20 17:45 Freq: Status: Active Protocol: Document 01/02/21 14:23 LRN (Rec: 01/02/21 15:08 LRN [id number]) Lumbar Spine Range of Motion Lumbar Spine Active Degrees Testing Position Standing Flexion 75 Extension 15 Lateral Flexion Left 15 Lateral Flexion Right 12 Hip Goniometric Range of Motion Hip Right Passive Testing Position Supine Flexion w/Knee Flexed 120 Straight Leg Raise 85 Internal Rotation 50 External Rotation 40 Left Passive Testing Position Supine Flexion w/Knee Flexed 110 Straight Leg Raise 80 Internal Rotation 35 External Rotation 50 PT-OP-M Strength Start: 12/29/20 17:45 Freq: Status: Active Protocol: Document 01/02/21 14:23 LRN (Rec: 01/02/21 15:08 LRN [id number]) Trunk Strength Trunk Manual Muscle Testing Testing Position Supine, Sidelie, Prone Comments Lacks core control w/MMT of LE 's. Hip Strength Hip Manual Muscle Testing Right Flexion (L2) 5 Normal Extension (S1) 3 Fair Abduction 5 Normal Adduction 3 Fair External Rotation 5 Normal Internal Rotation 5 Normal Left Flexion (L2) 3+ Fair+ Extension (S1) 3 Fair Abduction 5 Normal Adduction 3+ Fair+ External Rotation 3 Fair Internal Rotation 5 Normal PT-OP-Q Treatments Start: 12/29/20 17:45 Freq: Status: Active Protocol: Document 02/06/21 15:09 LRN (Rec: 02/06/21 15:59 LRN [id number]) Therapeutic Exercises Supine Exercises L SLR w/TA Supine Exercise Name SLR and SLR w/TA Side left Reps/Minutes 10x Comments Awareness training & Phys cuing needed for core stabilization. Fig 4 stretch Supine Exercise Name Fig 4 stretch Side right Reps/Minutes 5' Comments Extra time for training. Hip IR stretch Supine Exercise Name L>R Piriformis stretch Side bilateral Reps/Minutes 4' Prone Exercises Hip Ext/PF/TA Prone Exercise Name Hip Ext w/PF & TA tight. Side bilateral Reps/Minutes 10x each Comments Phys & v cuing needed to improve pt awareness of stable core. Sidelying Exercises Hip AD w/PF Sidelying Exercise Name Hip AD w/PF contraction & TA. Side bilateral Reps/Minutes 10x Comments Pt did TA kristine strengthening during rest phase. TA/Clamshell Sidelying Exercise Name Clamshell w/TA/core stab cuing & awareness training Side bilateral Reps/Minutes 15' Comments Pt able to stabilize during L clamshell. Self-Care/Home Management Treatment Education Patient Education Home Exercise Program Activities Self-Care/Home Management Activities Issued & reviewed HEP: PF contractions w/TA: Hip AD, Clamshell, Hip ext ( leg straight, knee bent). PT-OP-T Assessment and Plan Start: 12/29/20 17:45 Freq: Status: Active Protocol: Document 02/06/21 15:09 LRN (Rec: 02/06/21 15:59 LRN [id number]) Physical Therapy Assessment Goals Three Impairment Decreased PF strength (0-1/5) Impairment 7-10 O'Clock rated 1/5, 2-6 O'Clock 0/5. Short Term Goal (STG) Improve PF strength to 2/5 with pt will be able to walk by her bathroom without having to stop to urinate. STG Duration 02/01/21 Financial Coach Goal (LTG) Improve PF strength to 3/5 with pt able to hold a PF contraction no less than 3 secs and perform 5-6 quick squeezes prior to fatigue, for delaying urination with the delay technique. LTG Duration 03/17/21 Two Impairment Urinary urgency Short Term Goal (STG) Pt will be educated in urinary delay technique. STG Duration 01/09/21 (01/09/21: MET GOAL) Financial Coach Goal (LTG) Pt will be able to control her urgency when pulling up to her house and walk into the cold room of her work place. LTG Duration 03/17/21 One Impairment Lacks appropriate self care HEP. Financial Coach Goal (LTG) Pt will be independent in a self care HEP of hip/LB flexibility ex's & PF strengthening. (01/30/21: Added to HEP R hip ER stretch) (02/06/21: Added to HEP: hip AD, Ext & ER-clamshell w/PF/ TA strengthening). LTG Duration 03/17/21 (02/06/21: Progressed) Progress Towards Goals Progress Comments Progressed HEP. Assessment Summary Assessment Pt has very poor control of TA with LE movement (example - Clamshell knee lifts, R worse than L). Pt has poor core stab with hip ext and hip ER; hip AD is fair>good. Pt needed much training to gain awareness of core stabilization with clamshell and was not able to maintain stability on the R. Further core stab needed along with PF strengthening. Pt has with urinary urgency w/cystocele & rectocele, and occasional urinary leakage that is severe in nature, wetting her underwear. Most of the time her leakage is small and she wears daily pantiliners. Pt's postural deviations ( excessive lumbar lordosis) and chronic back pain are a hindrance to her rehabilitation. Physical Therapy Plan Frequency and Duration Frequency of Treatment 1x/Week Plan of Care Start Date 01/02/21 Plan of Care End Date 03/17/21 Next Visit Focus/Plan Next Note Type Treatment Note Next Visit Plan Teach automatic use of PF w/ substitute muscles, and w/core activation. Review hip strengthening (AD, ext, only L side: flex, ER) & review bent knee hip ext, review auto TA/PF contraction for pelvic stabilization Add hip stretch for L SLR. pt education in proper vulvar/ genital care, Assess abdominal soft tissue ( bladder) mobility. Educate pt in proper squatting and lifting, sit to stand, and moving in bed using breathwork and progress PF/core stabilization for proper abdominal pressure system.
--- NOTE | 2021-02-13 16:12 | PT.OTN ---
Current Diagnoses Cystocele, midline (02/13/21) Urgency of urination (02/13/21) Physical Therapy Treatment Note PT-OP-A Visit Information Start: 12/29/20 17:45 Freq: Status: Active Protocol: Document 02/13/21 15:17 LRN (Rec: 02/13/21 16:10 LRN [id number]) Out-Patient Physical Therapy Visit Information Visit Information Visit Type Treatment Note Visit Start Time 15:17 Visit Stop Time 16:00 Total Visit Minutes 43 Visit Number 6 Evaluation Information Evaluation Date 01/02/21 Precautions Precautions Controlled HBP, General LBP for years from repetitive use. PT-OP-B Current Condition Start: 12/29/20 17:45 Freq: Status: Active Protocol: Document 01/02/21 14:23 LRN (Rec: 01/02/21 15:08 LRN [id number]) Current Condition History of Current Condition Onset Date 6 months Current Complaints Urinary urgency is the primary problem. Now and again will leak. History of Current Condition Urinary urgency. Has gradually gotten worse over the years and now she feels her organs are further south than they use to be. Prior Treatments and Tests Chiropractic treatment for years for low back pain. Developmental History Developmental History 1 child 31 yrs ago, vaginal without complications. Treatment Goals Patient/Caregiver Goals Pt goal is: not be triggered to urinate when walking by bathroom. to decrease trigger responses (pulling into house, walking into a cold room). Prior Functional Status Baseline Function- ADL's Independent Baseline Function- Work/School Works FT at [employer] in the [place]i 4a - 1p Baseline Function- Other No wetting of underwear. Wears pantiliners all the time , since youth. Current Functional Impairments (Reported) Functional Limitations- ADL's Urinating every hour in mornings. In afternoons not as frequent. Occasionally wets underwear. Most of the time barely makes it to the bathroom. Urinates 10x/day and 1x in evening. Personal Factors Other Personal Factors That May Effect Works FT @ [employer] early Therapy/Recovery morning shift, with break every 2 hours. PT-OP-C Subjective Start: 12/29/20 17:45 Freq: Status: Active Protocol: Document 02/13/21 15:17 LRN (Rec: 02/13/21 16:10 LRN [id number]) OP-PT Subjective Patient Comments Patient Comments need to do better at stretches, exercise. PT-OP-I Pelvic Floor Start: 12/29/20 17:45 Freq: Status: Active Protocol: Document 01/30/21 15:17 LRN (Rec: 01/30/21 16:23 LRN [id number]) Pelvic Floor Assessment SEMG (uV) Baseline 0.6 Quick Contraction 5.2 10 Second Contraction 4.8 Recruitment Pattern Good Relaxation Good Holding Fair Stability of Hold Fair SEMG Stability of Rest Good PT-OP-J Posture/Palpation/Skin Start: 12/29/20 17:45 Freq: Status: Active Protocol: Document 01/02/21 14:23 LRN (Rec: 01/02/21 15:08 LRN [id number]) Posture Evaluation Position Standing Head/C-Spine Posture Forward Head T-Spine Posture Flattened L-Spine Posture Increased Lordosis Pelvis Posture Anteriorly Tilted PT-OP-K Range of Motion Start: 12/29/20 17:45 Freq: Status: Active Protocol: Document 01/02/21 14:23 LRN (Rec: 01/02/21 15:08 LRN [id number]) Lumbar Spine Range of Motion Lumbar Spine Active Degrees Testing Position Standing Flexion 75 Extension 15 Lateral Flexion Left 15 Lateral Flexion Right 12 Hip Goniometric Range of Motion Hip Right Passive Testing Position Supine Flexion w/Knee Flexed 120 Straight Leg Raise 85 Internal Rotation 50 External Rotation 40 Left Passive Testing Position Supine Flexion w/Knee Flexed 110 Straight Leg Raise 80 Internal Rotation 35 External Rotation 50 PT-OP-M Strength Start: 12/29/20 17:45 Freq: Status: Active Protocol: Document 01/02/21 14:23 LRN (Rec: 01/02/21 15:08 LRN [id number]) Trunk Strength Trunk Manual Muscle Testing Testing Position Supine, Sidelie, Prone Comments Lacks core control w/MMT of LE 's. Hip Strength Hip Manual Muscle Testing Right Flexion (L2) 5 Normal Extension (S1) 3 Fair Abduction 5 Normal Adduction 3 Fair External Rotation 5 Normal Internal Rotation 5 Normal Left Flexion (L2) 3+ Fair+ Extension (S1) 3 Fair Abduction 5 Normal Adduction 3+ Fair+ External Rotation 3 Fair Internal Rotation 5 Normal PT-OP-Q Treatments Start: 12/29/20 17:45 Freq: Status: Active Protocol: Document 02/13/21 15:17 LRN (Rec: 02/13/21 16:10 LRN [id number]) Therapeutic Exercises Supine Exercises LTR Supine Exercise Name Knee rolls LTR: active & manual resist Reps/Minutes 12' Comments Much phys & v cuing needed to improve aware of pelvic rot for core stab BKFO/PF/TA Supine Exercise Name BKFO/PF/TA Side right Resistance Lev 1 TBand. Reps/Minutes 10x Comments Much phy & v. cuing throughout ex. L SLR w/TA Supine Exercise Name SLR and SLR w/TA Side left Reps/Minutes 10x Comments Awareness training & Phys cuing needed for core stabilization. Prone Exercises Hip Ext/PF/TA Prone Exercise Name Hip Ext w/PF & TA tight. Side bilateral Reps/Minutes 10x each Comments Phys & v cuing needed to improve pt awareness of stable core. Sidelying Exercises Hip AD w/PF Sidelying Exercise Name Hip AD w/PF contraction & TA. Side bilateral Reps/Minutes 10x 2 Comments Pt did TA kristine strengthening during rest phase. TA/Clamshell Sidelying Exercise Name Clamshell w/TA/core stab cuing & awareness training Side bilateral Reps/Minutes 15' Comments Pt able to stabilize during L clamshell, much phy cuing during ex. Self-Care/Home Management Treatment Education Patient Education Home Exercise Program Activities Self-Care/Home Management Activities Issued & reviewed HEP: Pelvic rotation (LTR), written ex's: Clamshell, SLR, R BKFO w/TA/ PF. PT-OP-T Assessment and Plan Start: 12/29/20 17:45 Freq: Status: Active Protocol: Document 02/13/21 15:17 LRN (Rec: 02/13/21 16:10 LRN [id number]) Physical Therapy Assessment Goals Three Impairment Decreased PF strength (0-1/5) Impairment 7-10 O'Clock rated 1/5, 2-6 O'Clock 0/5. Short Term Goal (STG) Improve PF strength to 2/5 with pt will be able to walk by her bathroom without having to stop to urinate. STG Duration 02/01/21 Half-Way Goal (LTG) Improve PF strength to 3/5 with pt able to hold a PF contraction no less than 3 secs and perform 5-6 quick squeezes prior to fatigue, for delaying urination with the delay technique. LTG Duration 03/17/21 Two Impairment Urinary urgency Short Term Goal (STG) Pt will be educated in urinary delay technique. STG Duration 01/09/21 (01/09/21: MET GOAL) Molding Manager Goal (LTG) Pt will be able to control her urgency when pulling up to her house and walk into the cold room of her work place. LTG Duration 03/17/21 One Impairment Lacks appropriate self care HEP. Half-Way Goal (LTG) Pt will be independent in a self care HEP of hip/LB flexibility ex's & PF strengthening. (01/30/21: Added to HEP R hip ER stretch) (02/06/21: Added to HEP: hip AD, Ext & ER-clamshell w/PF/ TA strengthening). (02/13/21: Added Pelvic rotation LTR, R BKFO w/TA/PF & L SLR). LTG Duration 03/17/21 (02/13/21: Progressed ) Progress Towards Goals Progress Comments Progressed HEP. Assessment Summary Assessment Poor R hip/core stability strength with R clamshell, good control L clamshell. Pt better able to stabilize and perform R BKFO with resistance in supine (back support). Pt has poor core stabilization with rotational stress. Physical Therapy Plan Frequency and Duration Frequency of Treatment 1x/Week Plan of Care Start Date 01/02/21 Plan of Care End Date 03/17/21 Next Visit Focus/Plan Next Note Type Treatment Note Next Visit Plan Review for core stability and increased core rotation stabilization with SLR, R BKFO & clamshell. Teach automatic use of PF w/ substitute muscles, and w/core activation. Review hip ext with bent knee. Add hip stretch for L SLR. Focus PF strengthenin-10 O'Clock rated 1/5, 2-6 O'Clock 0/5. Pt education in proper vulvar/ genital care, Assess abdominal soft tissue ( bladder) mobility. Educate pt in proper squatting and lifting, sit to stand, and moving in bed using breathwork and progress PF/core stabilization for proper abdominal pressure system.
--- NOTE | 2021-02-20 16:06 | PT.OTN ---
Current Diagnoses Cystocele, midline (02/20/21) Urgency of urination (02/20/21) Physical Therapy Treatment Note PT-OP-A Visit Information Start: 12/29/20 17:45 Freq: Status: Active Protocol: Document 02/20/21 15:06 LRN (Rec: 02/20/21 16:05 LRN [id number]) Out-Patient Physical Therapy Visit Information Visit Information Visit Type Treatment Note Visit Start Time 15:06 Visit Stop Time 15:47 Total Visit Minutes 40 Visit Number 7 Evaluation Information Evaluation Date 01/02/21 Precautions Precautions Controlled HBP, General LBP for years from repetitive use. PT-OP-B Current Condition Start: 12/29/20 17:45 Freq: Status: Active Protocol: Document 01/02/21 14:23 LRN (Rec: 01/02/21 15:08 LRN [id number]) Current Condition History of Current Condition Onset Date 6 months Current Complaints Urinary urgency is the primary problem. Now and again will leak. History of Current Condition Urinary urgency. Has gradually gotten worse over the years and now she feels her organs are further south than they use to be. Prior Treatments and Tests Chiropractic treatment for years for low back pain. Developmental History Developmental History 1 child 31 yrs ago, vaginal without complications. Treatment Goals Patient/Caregiver Goals Pt goal is: not be triggered to urinate when walking by bathroom. to decrease trigger responses (pulling into house, walking into a cold room). 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 Wears pantiliners all the time , since youth. Current Functional Impairments (Reported) Functional Limitations- ADL's Urinating every hour in mornings. In afternoons not as frequent. Occasionally wets underwear. Most of the time barely makes it to the bathroom. Urinates 10x/day and 1x in evening. Personal Factors Other Personal Factors That May Effect Works FT @ [employer] early Therapy/Recovery morning shift, with break every 2 hours. PT-OP-C Subjective Start: 12/29/20 17:45 Freq: Status: Active Protocol: Document 02/20/21 15:06 LRN (Rec: 02/20/21 16:05 LRN [id number]) OP-PT Subjective Patient Comments Patient Comments Seems she is able to hold urine longer in the morning. Since able to wait to urinate for 2.5-3 hrs. Started a new diet. PT-OP-I Pelvic Floor Start: 12/29/20 17:45 Freq: Status: Active Protocol: Document 01/30/21 15:17 LRN (Rec: 01/30/21 16:23 LRN [id number]) Pelvic Floor Assessment SEMG (uV) Baseline 0.6 Quick Contraction 5.2 10 Second Contraction 4.8 Recruitment Pattern Good Relaxation Good Holding Fair Stability of Hold Fair SEMG Stability of Rest Good PT-OP-J Posture/Palpation/Skin Start: 12/29/20 17:45 Freq: Status: Active Protocol: Document 01/02/21 14:23 LRN (Rec: 01/02/21 15:08 LRN [id number]) Posture Evaluation Position Standing Head/C-Spine Posture Forward Head T-Spine Posture Flattened L-Spine Posture Increased Lordosis Pelvis Posture Anteriorly Tilted PT-OP-K Range of Motion Start: 12/29/20 17:45 Freq: Status: Active Protocol: Document 01/02/21 14:23 LRN (Rec: 01/02/21 15:08 LRN [id number]) Lumbar Spine Range of Motion Lumbar Spine Active Degrees Testing Position Standing Flexion 75 Extension 15 Lateral Flexion Left 15 Lateral Flexion Right 12 Hip Goniometric Range of Motion Hip Right Passive Testing Position Supine Flexion w/Knee Flexed 120 Straight Leg Raise 85 Internal Rotation 50 External Rotation 40 Left Passive Testing Position Supine Flexion w/Knee Flexed 110 Straight Leg Raise 80 Internal Rotation 35 External Rotation 50 PT-OP-M Strength Start: 12/29/20 17:45 Freq: Status: Active Protocol: Document 01/02/21 14:23 LRN (Rec: 01/02/21 15:08 LRN [id number]) Trunk Strength Trunk Manual Muscle Testing Testing Position Supine, Sidelie, Prone Comments Lacks core control w/MMT of LE 's. Hip Strength Hip Manual Muscle Testing Right Flexion (L2) 5 Normal Extension (S1) 3 Fair Abduction 5 Normal Adduction 3 Fair External Rotation 5 Normal Internal Rotation 5 Normal Left Flexion (L2) 3+ Fair+ Extension (S1) 3 Fair Abduction 5 Normal Adduction 3+ Fair+ External Rotation 3 Fair Internal Rotation 5 Normal PT-OP-Q Treatments Start: 12/29/20 17:45 Freq: Status: Active Protocol: Document 02/20/21 15:06 LRN (Rec: 02/20/21 16:05 LRN [id number]) Therapeutic Exercises Supine Exercises LTR Supine Exercise Name Knee rolls LTR: active & manual resist Reps/Minutes 30x Comments V cuing for performance & aware of pelvic rot for core stab BKFO/PF/TA Supine Exercise Name BKFO/PF/TA Side right Resistance Lev 1 TBand. Reps/Minutes 10x Comments Phy cuing throughout ex.for pelvic rot R (correcting L rot w/ex) L SLR w/TA Supine Exercise Name SLR and SLR w/TA Side bilateral Reps/Minutes 10x 3 Left, 10x right Comments Awareness trng L SLR & Phys cuing needed for core stabilization. Prone Exercises Hip Ext/PF/TA Prone Exercise Name Hip Ext w/PF & TA tight. Side bilateral Reps/Minutes 10x each Comments Phys & v cuing needed to improve pt awareness of stable core. Sidelying Exercises Hip AD w/PF Sidelying Exercise Name Hip AD w/PF contraction & TA. Side bilateral Reps/Minutes 10x 3 (quick x 10, Long hold 10x 2) Comments Extra time to determine weakness in pelvic R rot TA/Clamshell Sidelying Exercise Name Clamshell w/TA/core stab cuing & awareness training Side bilateral Reps/Minutes 6' Comments v cuing for pt to use same side hand to assist with ER & ecc contr lowering Self-Care/Home Management Treatment Education Patient Education Home Exercise Program Activities Self-Care/Home Management Activities Issued Lev 2 TBand with white doorway strap for Pelvic rotation strengthening (core stab). PT-OP-T Assessment and Plan Start: 12/29/20 17:45 Freq: Status: Active Protocol: Document 02/20/21 15:06 LRN (Rec: 02/20/21 16:05 LRN [id number]) Physical Therapy Assessment Goals Three Impairment Decreased PF strength (0-1/5) Impairment 7-10 O'Clock rated 1/5, 2-6 O'Clock 0/5. Short Term Goal (STG) Improve PF strength to 2/5 with pt will be able to walk by her bathroom without having to stop to urinate. STG Duration 02/01/21 Nurse Assessor Goal (LTG) Improve PF strength to 3/5 with pt able to hold a PF contraction no less than 3 secs and perform 5-6 quick squeezes prior to fatigue, for delaying urination with the delay technique. LTG Duration 03/17/21 Two Impairment Urinary urgency Short Term Goal (STG) Pt will be educated in urinary delay technique. STG Duration 01/09/21 (01/09/21: MET GOAL) Nurse Assessor Goal (LTG) Pt will be able to control her urgency when pulling up to her house and walk into the cold room of her work place. LTG Duration 03/17/21 One Impairment Lacks appropriate self care HEP. [facility] Goal (LTG) Pt will be independent in a self care HEP of hip/LB flexibility ex's & PF strengthening. (01/30/21: Added to HEP R hip ER stretch) (02/06/21: Added to HEP: hip AD, Ext & ER-clamshell w/PF/ TA strengthening). (02/13/21: Added Pelvic rotation LTR, R BKFO w/TA/PF & L SLR). LTG Duration 03/17/21 (02/13/21: Progressed ) Assessment Summary Assessment Pt recently reporting ability to hold urine 5 hrs before voiding in the morning. Not known urination time. Today pt demonstrates weakness with pelvic/core rotation to the Right with movement of L leg in supine (pelvis rotates left ) and R leg ext in prone ( pelvis anteriorly tilts & rotates left). Pt is not able to maintain neutral position. Physical Therapy Plan Frequency and Duration Frequency of Treatment 1x/Week Plan of Care Start Date 01/02/21 Plan of Care End Date 03/17/21 Next Visit Focus/Plan Next Note Type Treatment Note Next Visit Plan Assess progress towards goals 2 & 3. Assess progress towards core/ pelvic rotation stability with SLR & control with increased clamshell mobility. Assess auto use of TA with laugh and light cough. Train automatic PF contraction w/substitute muscles, and w/ core activation. Add hip stretch for L SLR. Focus PF strengthenin-10 O'Clock rated 1/5, 2-6 O'Clock 0/5. Pt education in proper vulvar/ genital care, Assess abdominal soft tissue ( bladder) mobility. Educate pt in proper squatting and lifting, sit to stand, and moving in bed using breathwork and progress PF/core stabilization for proper abdominal pressure system.
--- NOTE | 2021-02-27 16:13 | PT.OTN ---
Current Diagnoses Cystocele, midline (02/27/21) Urgency of urination (02/27/21) Physical Therapy Treatment Note PT-OP-A Visit Information Start: 12/29/20 17:45 Freq: Status: Active Protocol: Document 02/27/21 15:13 LRN (Rec: 02/27/21 16:12 LRN [id number]) Out-Patient Physical Therapy Visit Information Visit Information Visit Type Treatment Note Visit Start Time 15:13 Visit Stop Time 15:53 Total Visit Minutes 40 Visit Number 8 Evaluation Information Evaluation Date 01/02/21 Precautions Precautions Controlled HBP, General LBP for years from repetitive use. PT-OP-B Current Condition Start: 12/29/20 17:45 Freq: Status: Active Protocol: Document 01/02/21 14:23 LRN (Rec: 01/02/21 15:08 LRN [id number]) Current Condition History of Current Condition Onset Date 6 months Current Complaints Urinary urgency is the primary problem. Now and again will leak. History of Current Condition Urinary urgency. Has gradually gotten worse over the years and now she feels her organs are further south than they use to be. Prior Treatments and Tests Chiropractic treatment for years for low back pain. Developmental History Developmental History 1 child 31 yrs ago, vaginal without complications. Treatment Goals Patient/Caregiver Goals Pt goal is: not be triggered to urinate when walking by bathroom. to decrease trigger responses (pulling into house, walking into a cold room). 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 Wears pantiliners all the time , since youth. Current Functional Impairments (Reported) Functional Limitations- ADL's Urinating every hour in mornings. In afternoons not as frequent. Occasionally wets underwear. Most of the time barely makes it to the bathroom. Urinates 10x/day and 1x in evening. Personal Factors Other Personal Factors That May Effect Works FT @ [employer] early Therapy/Recovery morning shift, with break every 2 hours. PT-OP-C Subjective Start: 12/29/20 17:45 Freq: Status: Active Protocol: Document 02/27/21 15:13 LRN (Rec: 02/27/21 16:12 LRN [id number]) OP-PT Subjective Patient Comments Patient Comments No urgencies that are dire lately. PT-OP-I Pelvic Floor Start: 12/29/20 17:45 Freq: Status: Active Protocol: Document 01/30/21 15:17 LRN (Rec: 01/30/21 16:23 LRN [id number]) Pelvic Floor Assessment SEMG (uV) Baseline 0.6 Quick Contraction 5.2 10 Second Contraction 4.8 Recruitment Pattern Good Relaxation Good Holding Fair Stability of Hold Fair SEMG Stability of Rest Good PT-OP-J Posture/Palpation/Skin Start: 12/29/20 17:45 Freq: Status: Active Protocol: Document 01/02/21 14:23 LRN (Rec: 01/02/21 15:08 LRN [id number]) Posture Evaluation Position Standing Head/C-Spine Posture Forward Head T-Spine Posture Flattened L-Spine Posture Increased Lordosis Pelvis Posture Anteriorly Tilted PT-OP-K Range of Motion Start: 12/29/20 17:45 Freq: Status: Active Protocol: Document 01/02/21 14:23 LRN (Rec: 01/02/21 15:08 LRN [id number]) Lumbar Spine Range of Motion Lumbar Spine Active Degrees Testing Position Standing Flexion 75 Extension 15 Lateral Flexion Left 15 Lateral Flexion Right 12 Hip Goniometric Range of Motion Hip Right Passive Testing Position Supine Flexion w/Knee Flexed 120 Straight Leg Raise 85 Internal Rotation 50 External Rotation 40 Left Passive Testing Position Supine Flexion w/Knee Flexed 110 Straight Leg Raise 80 Internal Rotation 35 External Rotation 50 PT-OP-M Strength Start: 12/29/20 17:45 Freq: Status: Active Protocol: Document 01/02/21 14:23 LRN (Rec: 01/02/21 15:08 LRN [id number]) Trunk Strength Trunk Manual Muscle Testing Testing Position Supine, Sidelie, Prone Comments Lacks core control w/MMT of LE 's. Hip Strength Hip Manual Muscle Testing Right Flexion (L2) 5 Normal Extension (S1) 3 Fair Abduction 5 Normal Adduction 3 Fair External Rotation 5 Normal Internal Rotation 5 Normal Left Flexion (L2) 3+ Fair+ Extension (S1) 3 Fair Abduction 5 Normal Adduction 3+ Fair+ External Rotation 3 Fair Internal Rotation 5 Normal PT-OP-Q Treatments Start: 12/29/20 17:45 Freq: Status: Active Protocol: Document 02/27/21 15:13 LRN (Rec: 02/27/21 16:12 LRN [id number]) Therapeutic Exercises Supine Exercises Hamstring stretch Supine Exercise Name LE neural/Hamstring stretch Side bilateral Reps/Minutes 1 - 60 cycle each Comments Extra time needed for initial training and max stretch tolerance. LTR Supine Exercise Name Knee rolls LTR: active & manual resist Reps/Minutes 30x each Comments V cuing for performance & aware of pelvic rot for core stab BKFO/PF/TA Supine Exercise Name BKFO/PF/TA Side right Resistance Lev 1 TBand. Reps/Minutes 10x 3 each Comments Phy cuing throughout ex.for pelvic rot R (correcting L rot w/ex) PF isolated contraction Supine Exercise Name TA villalobos, villalobos, & soft cough Reps/Minutes 13' Comments Extra time for training with phys cuing at lower abs. Sidelying Exercises Hip AD w/PF Sidelying Exercise Name Hip AD w/PF contraction & TA. Side bilateral Reps/Minutes 10x 3 each (quick x 10, Long hold 10x 2) Comments Extra time to determine weakness in pelvic R rot TA/Clamshell Sidelying Exercise Name Clamshell w/TA/core stab cuing & awareness training Side bilateral Equipment Used 1# Reps/Minutes 6' Comments v cuing for pt to use same side hand to assist with ER & ecc contr lowering Self-Care/Home Management Treatment Education Patient Education Home Exercise Program Activities Self-Care/Home Management Activities Issued & reviewed HEP: Hip PF strengthening w/ER & w/AD ( Quick and Long Hold strengthening), and Hamstring stretch. PT-OP-T Assessment and Plan Start: 12/29/20 17:45 Freq: Status: Active Protocol: Document 02/27/21 15:13 LRN (Rec: 02/27/21 16:12 LRN [id number]) Physical Therapy Assessment Goals Three Impairment Decreased PF strength (0-1/5) Impairment 7-10 O'Clock rated 1/5, 2-6 O'Clock 0/5. Short Term Goal (STG) Improve PF strength to 2/5 with pt will be able to walk by her bathroom without having to stop to urinate. (02/27/21: Not having the urge to urinate when walking by the bathroom at home). STG Duration 02/01/21 (02/27/21: MET GOAL ) Health Club Manager Goal (LTG) Improve PF strength to 3/5 with pt able to hold a PF contraction no less than 3 secs and perform 5-6 quick squeezes prior to fatigue, for delaying urination with the delay technique. (02/27/21: Using the Urinary delay techinque when needed). LTG Duration 03/17/21 (02/27/21: Progressed, pt using delay technique as needed) Two Impairment Urinary urgency Short Term Goal (STG) Pt will be educated in urinary delay technique. STG Duration 01/09/21 (01/09/21: MET GOAL) Health Club Manager Goal (LTG) Pt will be able to control her urgency when pulling up to her house and walk into the cold room of her work place. (02/27/21: Pt able to do without having to roldan to bathroom to void). LTG Duration 03/17/21 (02/27/21: MET GOAL ). One Impairment Lacks appropriate self care HEP. Care Home Goal (LTG) Pt will be independent in a self care HEP of hip/LB flexibility ex's & PF strengthening. (01/30/21: Added to HEP R hip ER stretch) (02/06/21: Added to HEP: hip AD, Ext & ER-clamshell w/PF/ TA strengthening). (02/13/21: Added Pelvic rotation LTR, R BKFO w/TA/PF & L SLR). 02/27/21: Added Hamstring stretch, PF strengthening with hip AD & AB-clamshell). LTG Duration 03/17/21 (02/27/21: Progressed) Progress Towards Goals Progress Comments STG #3 & LTG #2 MET. (All of goal #2 MET). Progressed HEP. Assessment Summary Assessment Pt was able to demonstrate much better understanding of TA control with villalobos, villalobos and soft cough after training. After training she was able to automatically perform x 1, then needed much concentration to perform again. Pt demonstrates decreased strength and mobility with R hip ER (clamshell). Physical Therapy Plan Frequency and Duration Frequency of Treatment 1x/Week Plan of Care Start Date 01/02/21 Plan of Care End Date 03/17/21 Next Visit Focus/Plan Next Note Type Treatment Note Next Visit Plan Assess PF strength. Assess progress towards core/ pelvic rotation stability with SLR & control with increased clamshell mobility. Re-assess auto use of TA with laugh and light cough. Train automatic PF contraction w/substitute muscles, and w/ core activation. Focus PF strengthenin-10 O'Clock rated 1/5, 2-6 O'Clock 0/5. Pt education in proper vulvar/ genital care, Assess abdominal soft tissue ( bladder) mobility. Educate pt in proper squatting and lifting, sit to stand, and moving in bed using breathwork and progress PF/core stabilization for proper abdominal pressure system.
--- NOTE | 2021-03-06 17:00 | PT.OTN ---
Current Diagnoses Cystocele, midline (03/06/21) Urgency of urination (03/06/21) Physical Therapy Treatment Note PT-OP-A Visit Information Start: 12/29/20 17:45 Freq: Status: Active Protocol: Document 03/06/21 15:08 LRN (Rec: 03/06/21 16:21 LRN [id number]) Out-Patient Physical Therapy Visit Information Visit Information Visit Type Treatment Note Visit Start Time 15:08 Visit Stop Time 15:55 Total Visit Minutes 47 Visit Number 9 Evaluation Information Evaluation Date 01/02/21 Precautions Precautions Controlled HBP, General LBP for years from repetitive use. PT-OP-B Current Condition Start: 12/29/20 17:45 Freq: Status: Active Protocol: Document 01/02/21 14:23 LRN (Rec: 01/02/21 15:08 LRN [id number]) Current Condition History of Current Condition Onset Date 6 months Current Complaints Urinary urgency is the primary problem. Now and again will leak. History of Current Condition Urinary urgency. Has gradually gotten worse over the years and now she feels her organs are further south than they use to be. Prior Treatments and Tests Chiropractic treatment for years for low back pain. Developmental History Developmental History 1 child 31 yrs ago, vaginal without complications. Treatment Goals Patient/Caregiver Goals Pt goal is: not be triggered to urinate when walking by bathroom. to decrease trigger responses (pulling into house, walking into a cold room). 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 Wears pantiliners all the time , since youth. Current Functional Impairments (Reported) Functional Limitations- ADL's Urinating every hour in mornings. In afternoons not as frequent. Occasionally wets underwear. Most of the time barely makes it to the bathroom. Urinates 10x/day and 1x in evening. Personal Factors Other Personal Factors That May Effect Works FT @ [employer] early Therapy/Recovery morning shift, with break every 2 hours. PT-OP-C Subjective Start: 12/29/20 17:45 Freq: Status: Active Protocol: Document 03/06/21 15:08 LRN (Rec: 03/06/21 16:21 LRN [id number]) OP-PT Subjective Patient Comments Patient Comments Same. PT-OP-I Pelvic Floor Start: 12/29/20 17:45 Freq: Status: Active Protocol: Document 03/06/21 15:08 LRN (Rec: 03/06/21 16:21 LRN [id number]) Pelvic Floor Assessment Prolapse Cystocele Grade 3 SEMG (uV) Baseline 0.2 Quick Contraction 4.9 10 Second Contraction 5 Recruitment Pattern Good Relaxation Good Holding Good Stability of Hold Good SEMG Stability of Rest Good Contraction Ability Manual Muscle Testing Left 1 Manual Muscle Testing Right 1 Manual Muscle Testing Anterior 1 Manual Muscle Testing Posterior 3 Muscle Endurance (Seconds) 6 Number of Quick Contractions In 10 10 Seconds Comments Pelvic Floor Comments Quick Flicks contraction felt around the clock weakly. Long Holds, Posterior is 3/5, all other areas are 1/5. With assist there is a good contraction at 3 O'Clock of PF . Much v cuing was needed to get 9 O'Clock to contraction. SEMG values: 10 reps. Resting avg is 2.3 uV's Long Holds: 10 reps. Resting avg is 0.9 uV's PT-OP-J Posture/Palpation/Skin Start: 12/29/20 17:45 Freq: Status: Active Protocol: Document 01/02/21 14:23 LRN (Rec: 01/02/21 15:08 LRN [id number]) Posture Evaluation Position Standing Head/C-Spine Posture Forward Head T-Spine Posture Flattened L-Spine Posture Increased Lordosis Pelvis Posture Anteriorly Tilted PT-OP-K Range of Motion Start: 12/29/20 17:45 Freq: Status: Active Protocol: Document 01/02/21 14:23 LRN (Rec: 01/02/21 15:08 LRN [id number]) Lumbar Spine Range of Motion Lumbar Spine Active Degrees Testing Position Standing Flexion 75 Extension 15 Lateral Flexion Left 15 Lateral Flexion Right 12 Hip Goniometric Range of Motion Hip Right Passive Testing Position Supine Flexion w/Knee Flexed 120 Straight Leg Raise 85 Internal Rotation 50 External Rotation 40 Left Passive Testing Position Supine Flexion w/Knee Flexed 110 Straight Leg Raise 80 Internal Rotation 35 External Rotation 50 PT-OP-M Strength Start: 12/29/20 17:45 Freq: Status: Active Protocol: Document 01/02/21 14:23 LRN (Rec: 01/02/21 15:08 LRN [id number]) Trunk Strength Trunk Manual Muscle Testing Testing Position Supine, Sidelie, Prone Comments Lacks core control w/MMT of LE 's. Hip Strength Hip Manual Muscle Testing Right Flexion (L2) 5 Normal Extension (S1) 3 Fair Abduction 5 Normal Adduction 3 Fair External Rotation 5 Normal Internal Rotation 5 Normal Left Flexion (L2) 3+ Fair+ Extension (S1) 3 Fair Abduction 5 Normal Adduction 3+ Fair+ External Rotation 3 Fair Internal Rotation 5 Normal PT-OP-Q Treatments Start: 12/29/20 17:45 Freq: Status: Active Protocol: Document 03/06/21 15:08 LRN (Rec: 03/06/21 16:21 LRN [id number]) Therapeutic Exercises Supine Exercises PF Long holds Supine Exercise Name 10 sec holds with vaginal electrode and digital stim Reps/Minutes 14' Comments See PF Assessment, reviewed with pt results PF Quick Flicks Supine Exercise Name PF Quick Flicks w/vaginal electrode & digital stim Reps/Minutes 10' Comments See PF Assessment, reviewed with pt results PF Baseline Supine Exercise Name Resting baseline Reps/Minutes 5' Comments Extra time for set up and testing PF isolated contraction Supine Exercise Name TA villalobos, villalobos, & soft cough Reps/Minutes 5' Comments In sitting and supine Sidelying Exercises TA/Clamshell Sidelying Exercise Name Clamshell w/TA/core stab cuing & awareness training Side bilateral Equipment Used 1# Reps/Minutes 5' Comments v cuing for pt to use same side hand to assist with ER & ecc contr lowering Self-Care/Home Management Treatment Education Other Education Discussed plan of car and new goals of pt HEP and increased PF strength at next recheck. PT-OP-T Assessment and Plan Start: 12/29/20 17:45 Freq: Status: Active Protocol: Document 03/06/21 15:08 LRN (Rec: 03/06/21 16:21 LRN [id number]) Physical Therapy Assessment Rehab Potential Rehabilitation Potential Excellent Evaluation Complexity Number of Personal Factors/Comorbidities 1-2 Number of Body Systems Impaired 3 Clinical Presentation at Evaluation Stable Impairments Impairments ROM,Strength Goals Three Impairment Decreased PF strength (0-1/5) Impairment 7-10 O'Clock rated 1/5, 2-6 O'Clock 0/5. Short Term Goal (STG) Improve PF strength to 2/5 with pt will be able to walk by her bathroom without having to stop to urinate. (02/27/21: Not having the urge to urinate when walking by the bathroom at home). STG Duration 02/01/21 (02/27/21: MET GOAL ) Poolroom Table Attendant Goal (LTG) Improve PF strength to 3/5 with pt able to hold a PF contraction no less than 3 secs and perform 5-6 quick squeezes prior to fatigue, for delaying urination with the delay technique. (02/27/21: Using the Urinary delay techinque when needed). LTG Duration 03/17/21 (03/06/21: MET GOAL) One Impairment Lacks appropriate self care HEP. Poolroom Table Attendant Goal (LTG) Pt will be independent in a self care HEP of hip/LB flexibility ex's, PF strengthening (focus on anterior, and lateral gaffney). (01/30/21: Added to HEP R hip ER stretch) (02/06/21: Added to HEP: hip AD, Ext & ER-clamshell w/PF/ TA strengthening). (02/13/21: Added Pelvic rotation LTR, R BKFO w/TA/PF & L SLR). 02/27/21: Added Hamstring stretch, PF strengthening with hip AD & AB-clamshell). LTG Duration 06/04/21 (02/27/21: Progressed) Assessment Summary Assessment The pt has improved in her PF strength of Quick Flicks more than her Long Hold PF muscles. Her PF Quick flick contraction is good around the pelvic clock, rated 3/5. PF Long Holds are weak in the anterior and lateral gaffney of the PF Clock. With EMG Biofeedback, pt PF strength is slightly more when doing an isolated PF contraction. Resting tone is good. Pt primary areas of concern for long hold strengthening is anteriorly and lateral gaffney. L lateral wall shows good response with assist of L hip AD, but R lateral wall is slower to respond with assist of R hip AD's. Pt automatic contraction of TA with laugh or light cough is much improved. The pt will benefit from continued physical therapy to achieve the above stated goals to improve the PF in areas of weakness and for more pt education in proper pressures of the core canister to minimize further weakening of the PF and for PF care. Physical Therapy Plan Frequency and Duration Frequency of Treatment 1x/Week Plan of Care Start Date 01/02/21 Plan of Care End Date 06/04/21 Therapeutic Interventions Therapeutic Interventions Home Exercise Program,Manual Therapy,Neuromuscular Re- education,Patient/Caregiver Education,Self-Care/Home Management,Therapeutic Exercises Next Visit Focus/Plan Next Note Type Treatment Note Next Visit Plan Next visit set pt on HEP of PF strengthening of long holds anterior & lateral gaffney with pt awareness needed with R>L nicole (L contracts well with assist of L hip AD's). Focus PF endurance strengthenin & 9 O'Clock and anterior PF, rated 1/5. Pt education in proper vulvar/ genital care, and in proper squatting and lifting, sit to stand, and moving in bed using breathwork, Progress PF/core stabilization for proper abdominal pressure system. Train automatic PF contraction w/substitute muscles, and w/ core activation. Assess progress towards core/ pelvic rotation stability with SLR & control with increased clamshell mobility. ?Assess abdominal soft tissue (bladder) mobility. Then pt to work on HEP with f/ u after new year for possibly final assessment if PF strength improved.
--- NOTE | 2021-03-06 17:01 | PT.OPPOC ---
Physical, Occupational & Speech Therapy At [facility] Current Diagnoses Cystocele, midline (03/06/21) Urgency of urination (03/06/21) Visit Care Team Role Provider Type Juventino Teran MD Primary Care Provider Physician Specialty: Family Practice Address: [address] [place] [address] Email: [email or web address] Radha Everett MD Attending Provider Physician Referring Provider Specialty: HEAD LOADER Address: [address] [place] [address], [id number] Email: [email or web address] Plan Of Care PT-OP-T Assessment and Plan Start: 12/29/20 17:45 Freq: Status: Active Protocol: Document 03/06/21 15:08 LRN (Rec: 03/06/21 16:21 LRN [id number]) Physical Therapy Assessment Rehab Potential Rehabilitation Potential Excellent Evaluation Complexity Number of Personal Factors/Comorbidities 1-2 Number of Body Systems Impaired 3 Clinical Presentation at Evaluation Stable Impairments Impairments ROM,Strength Goals Three Impairment Decreased PF strength (0-1/5) Impairment 7-10 O'Clock rated 1/5, 2-6 O'Clock 0/5. Short Term Goal (STG) Improve PF strength to 2/5 with pt will be able to walk by her bathroom without having to stop to urinate. (02/27/21: Not having the urge to urinate when walking by the bathroom at home). STG Duration 02/01/21 (02/27/21: MET GOAL ) Music Education Director Goal (LTG) Improve PF strength to 3/5 with pt able to hold a PF contraction no less than 3 secs and perform 5-6 quick squeezes prior to fatigue, for delaying urination with the delay technique. (02/27/21: Using the Urinary delay techinque when needed). LTG Duration 03/17/21 (03/06/21: MET GOAL) One Impairment Lacks appropriate self care HEP. Fdc Goal (LTG) Pt will be independent in a self care HEP of hip/LB flexibility ex's, PF strengthening (focus on anterior, and lateral gaffney). (01/30/21: Added to HEP R hip ER stretch) (02/06/21: Added to HEP: hip AD, Ext & ER-clamshell w/PF/ TA strengthening). (02/13/21: Added Pelvic rotation LTR, R BKFO w/TA/PF & L SLR). 02/27/21: Added Hamstring stretch, PF strengthening with hip AD & AB-clamshell). LTG Duration 06/04/21 (02/27/21: Progressed) Assessment Summary Assessment The pt has improved in her PF strength of Quick Flicks more than her Long Hold PF muscles. Her PF Quick flick contraction is good around the pelvic clock, rated 3/5. PF Long Holds are weak in the anterior and lateral gaffney of the PF Clock. With EMG Biofeedback, pt PF strength is slightly more when doing an isolated PF contraction. Resting tone is good. Pt primary areas of concern for long hold strengthening is anteriorly and lateral gaffney. L lateral wall shows good response with assist of L hip AD, but R lateral wall is slower to respond with assist of R hip AD's. Pt automatic contraction of TA with laugh or light cough is much improved. The pt will benefit from continued physical therapy to achieve the above stated goals to improve the PF in areas of weakness and for more pt education in proper pressures of the core canister to minimize further weakening of the PF and for PF care. Physical Therapy Plan Frequency and Duration Frequency of Treatment 1x/Week Plan of Care Start Date 01/02/21 Plan of Care End Date 06/04/21 Therapeutic Interventions Therapeutic Interventions Home Exercise Program,Manual Therapy,Neuromuscular Re- education,Patient/Caregiver Education,Self-Care/Home Management,Therapeutic Exercises Next Visit Focus/Plan Next Note Type Treatment Note Next Visit Plan Next visit set pt on HEP of PF strengthening of long holds anterior & lateral gaffney with pt awareness needed with R>L nicole (L contracts well with assist of L hip AD's). Focus PF endurance strengthenin & 9 O'Clock and anterior PF, rated 1/5. Pt education in proper vulvar/ genital care, and in proper squatting and lifting, sit to stand, and moving in bed using breathwork, Progress PF/core stabilization for proper abdominal pressure system. Train automatic PF contraction w/substitute muscles, and w/ core activation. Assess progress towards core/ pelvic rotation stability with SLR & control with increased clamshell mobility. ?Assess abdominal soft tissue (bladder) mobility. Then pt to work on HEP with f/ u after new year for possibly final assessment if PF strength improved. Plan of Care Dates Plan of Care Start Date 01/02/21 Plan of Care End Date 06/04/21 Electronically Signed by: Cielo Coyne, PT 03/06/21 [id number] Please Sign and Return: I have reviewed this Plan of Care and certify that the skilled therapy services above are required to meet the patient?s needs. Physician Signature Date Printed Name and Credentials Clinical Instructor Signature Printed Name and Credentials
--- NOTE | 2021-03-20 16:18 | PT.OTN ---
Current Diagnoses Cystocele, midline (03/20/21) Urgency of urination (03/20/21) Physical Therapy Treatment Note PT-OP-A Visit Information Start: 12/29/20 17:45 Freq: Status: Active Protocol: Document 03/20/21 15:11 LRN (Rec: 03/20/21 16:16 LRN [id number]) Out-Patient Physical Therapy Visit Information Visit Information Visit Type Treatment Note Visit Note 1 after PN Visit Start Time 15:11 Visit Stop Time 15:52 Total Visit Minutes 41 Visit Number 10 Evaluation Information Evaluation Date 01/02/21 Precautions Precautions Controlled HBP, General LBP for years from repetitive use. PT-OP-B Current Condition Start: 12/29/20 17:45 Freq: Status: Active Protocol: Document 01/02/21 14:23 LRN (Rec: 01/02/21 15:08 LRN [id number]) Current Condition History of Current Condition Onset Date 6 months Current Complaints Urinary urgency is the primary problem. Now and again will leak. History of Current Condition Urinary urgency. Has gradually gotten worse over the years and now she feels her organs are further south than they use to be. Prior Treatments and Tests Chiropractic treatment for years for low back pain. Developmental History Developmental History 1 child 31 yrs ago, vaginal without complications. Treatment Goals Patient/Caregiver Goals Pt goal is: not be triggered to urinate when walking by bathroom. to decrease trigger responses (pulling into house, walking into a cold room). Prior Functional Status Baseline Function- ADL's Independent Baseline Function- Work/School Works FT at [employer] in the [place] 4a - 1p Baseline Function- Other No wetting of underwear. Wears pantiliners all the time , since youth. Current Functional Impairments (Reported) Functional Limitations- ADL's Urinating every hour in mornings. In afternoons not as frequent. Occasionally wets underwear. Most of the time barely makes it to the bathroom. Urinates 10x/day and 1x in evening. Personal Factors Other Personal Factors That May Effect Works FT @ [employer] early Therapy/Recovery morning shift, with break every 2 hours. PT-OP-C Subjective Start: 12/29/20 17:45 Freq: Status: Active Protocol: Document 03/20/21 15:11 LRN (Rec: 03/20/21 16:16 LRN [id number]) OP-PT Subjective Patient Comments Patient Comments Cold this week and was coughing. Didn't seem to have PF falling out with coughing. No leakage with sudden urges . PT-OP-I Pelvic Floor Start: 12/29/20 17:45 Freq: Status: Active Protocol: Document 03/06/21 15:08 LRN (Rec: 03/06/21 16:21 LRN [id number]) Pelvic Floor Assessment Prolapse Cystocele Grade 3 SEMG (uV) Baseline 0.2 Quick Contraction 4.9 10 Second Contraction 5 Recruitment Pattern Good Relaxation Good Holding Good Stability of Hold Good SEMG Stability of Rest Good Contraction Ability Manual Muscle Testing Left 1 Manual Muscle Testing Right 1 Manual Muscle Testing Anterior 1 Manual Muscle Testing Posterior 3 Muscle Endurance (Seconds) 6 Number of Quick Contractions In 10 10 Seconds Comments Pelvic Floor Comments Quick Flicks contraction felt around the clock weakly. Long Holds, Posterior is 3/5, all other areas are 1/5. With assist there is a good contraction at 3 O'Clock of PF . Much v cuing was needed to get 9 O'Clock to contraction. SEMG values: 10 reps. Resting avg is 2.3 uV's Long Holds: 10 reps. Resting avg is 0.9 uV's PT-OP-J Posture/Palpation/Skin Start: 12/29/20 17:45 Freq: Status: Active Protocol: Document 01/02/21 14:23 LRN (Rec: 01/02/21 15:08 LRN [id number]) Posture Evaluation Position Standing Head/C-Spine Posture Forward Head T-Spine Posture Flattened L-Spine Posture Increased Lordosis Pelvis Posture Anteriorly Tilted PT-OP-K Range of Motion Start: 12/29/20 17:45 Freq: Status: Active Protocol: Document 01/02/21 14:23 LRN (Rec: 01/02/21 15:08 LRN [id number]) Lumbar Spine Range of Motion Lumbar Spine Active Degrees Testing Position Standing Flexion 75 Extension 15 Lateral Flexion Left 15 Lateral Flexion Right 12 Hip Goniometric Range of Motion Hip Right Passive Testing Position Supine Flexion w/Knee Flexed 120 Straight Leg Raise 85 Internal Rotation 50 External Rotation 40 Left Passive Testing Position Supine Flexion w/Knee Flexed 110 Straight Leg Raise 80 Internal Rotation 35 External Rotation 50 PT-OP-M Strength Start: 12/29/20 17:45 Freq: Status: Active Protocol: Document 01/02/21 14:23 LRN (Rec: 01/02/21 15:08 LRN [id number]) Trunk Strength Trunk Manual Muscle Testing Testing Position Supine, Sidelie, Prone Comments Lacks core control w/MMT of LE 's. Hip Strength Hip Manual Muscle Testing Right Flexion (L2) 5 Normal Extension (S1) 3 Fair Abduction 5 Normal Adduction 3 Fair External Rotation 5 Normal Internal Rotation 5 Normal Left Flexion (L2) 3+ Fair+ Extension (S1) 3 Fair Abduction 5 Normal Adduction 3+ Fair+ External Rotation 3 Fair Internal Rotation 5 Normal PT-OP-Q Treatments Start: 12/29/20 17:45 Freq: Status: Active Protocol: Document 03/20/21 15:11 LRN (Rec: 03/20/21 16:16 LRN [id number]) Therapeutic Exercises Supine Exercises PF/L hip AD Supine Exercise Name PF/L BKFI, Focus on L side Side bilateral Reps/Minutes 10x Quick, 1x Long hold over 10x Comments Extra time for pt awareness of Sidelying Exercises TA/Clamshell Sidelying Exercise Name Clamshell w/TA/core stab/PF contraction Side bilateral Reps/Minutes 5' 10x quick flicks, 1x Long (holding PF for 10 lifts) Comments v cuing for pt to use same side hand to assist with ER & ecc contr lowering Sitting Exercises PF/Hip AB Sitting Exercise Name Quick Flicks & Long Holds Equipment Used Lev 1 TB Reps/Minutes 5' Comments Focus on Long Holds, v & phy assist needed. PF/Ball Squeeze Sitting Exercise Name Quick Flicks & Long Holds Equipment Used Red Ball Reps/Minutes 5' Comments Focus on Long Holds, v & phy assist needed. Self-Care/Home Management Treatment Education Patient Education Home Exercise Program Other Education Reviewed proper transfers with preoper breathing and PF contraction. Educated pt in proper hip hinge for transfers sit to stand. Discussed areas to look at for reducing nighttime cramps ( positioning, hydration levels, too much in bed, nutrition). Pt educated in vulvar/genital care, and in proper squatting and lifting, and moving in bed using breathwork. Activities Self-Care/Home Management Activities Issued Issued & reviewed HEP: Supine/Sitting/Standing: Hip ER for Quick Flicks & Long Holds. PT-OP-T Assessment and Plan Start: 12/29/20 17:45 Freq: Status: Active Protocol: Document 03/20/21 15:11 LRN (Rec: 03/20/21 16:16 LRN [id number]) Physical Therapy Assessment Rehab Potential Rehabilitation Potential Excellent Evaluation Complexity Number of Personal Factors/Comorbidities 1-2 Number of Body Systems Impaired 3 Clinical Presentation at Evaluation Stable Impairments Impairments ROM,Strength Goals Three Impairment Decreased PF strength (0-1/5) Impairment 7-10 O'Clock rated 1/5, 2-6 O'Clock 0/5. Short Term Goal (STG) Improve PF strength to 2/5 with pt will be able to walk by her bathroom without having to stop to urinate. (02/27/21: Not having the urge to urinate when walking by the bathroom at home). STG Duration 02/01/21 (02/27/21: MET GOAL ) Sr. Vendor Management Associate Goal (LTG) Improve PF strength to 3/5 with pt able to hold a PF contraction no less than 3 secs and perform 5-6 quick squeezes prior to fatigue, for delaying urination with the delay technique. (02/27/21: Using the Urinary delay techinque when needed). LTG Duration 03/17/21 (03/06/21: MET GOAL) One Impairment Lacks appropriate self care HEP. Half-Way Goal (LTG) Pt will be independent in a self care HEP of hip/LB flexibility ex's, PF strengthening (focus on anterior, and lateral gaffney). (01/30/21: Added to HEP R hip ER stretch) (02/06/21: Added to HEP: hip AD, Ext & ER-clamshell w/PF/ TA strengthening). (02/13/21: Added Pelvic rotation LTR, R BKFO w/TA/PF & L SLR). 02/27/21: Added Hamstring stretch, PF strengthening with hip AD & AB-clamshell). LTG Duration 06/04/21 (02/27/21: Progressed) Assessment Summary Assessment Pt able to notice anterior PF contraction with supine L LE BKFO ex. Pt not leaking first thing in morning. Recent illness causing coughing and pt needing training for automatic PF contraction wth cough. Physical Therapy Plan Frequency and Duration Frequency of Treatment 1x/Week Plan of Care Start Date 01/02/21 Plan of Care End Date 06/04/21 Therapeutic Interventions Therapeutic Interventions Home Exercise Program,Manual Therapy,Neuromuscular Re- education,Patient/Caregiver Education,Self-Care/Home Management,Therapeutic Exercises Next Visit Focus/Plan Next Note Type Treatment Note Next Visit Plan Check PF strength of long holds anterior & lateral gaffney and focus pt's HEP on weak areas (?R>L nicole? and ? L contracts well without assist of L hip AD's?). Focus PF endurance strengthenin & 9 O'Clock and anterior PF, rated 1/5. Train automatic PF contraction w/substitute muscles, and w/ core activation. Assess progress towards core/ pelvic rotation stability with SLR & control with increased clamshell mobility. Assess abdominal soft tissue ( bladder) mobility. Then pt to work on HEP with f/ u after new year for possibly final assessment if PF strength improved.
--- NOTE | 2021-04-17 16:39 | PT.OTN ---
Current Diagnoses Cystocele, midline (04/17/21) Urgency of urination (04/17/21) Physical Therapy Treatment Note PT-OP-A Visit Information Start: 12/29/20 17:45 Freq: Status: Active Protocol: Document 04/17/21 15:00 LRN (Rec: 04/17/21 16:39 LRN [id number]) Out-Patient Physical Therapy Visit Information Visit Information Visit Type Treatment Note Visit Note 2 after PN Visit Start Time 15:00 Visit Stop Time 15:51 Total Visit Minutes 51 Visit Number 11 Evaluation Information Evaluation Date 01/02/21 Precautions Precautions Controlled HBP, General LBP for years from repetitive use. PT-OP-B Current Condition Start: 12/29/20 17:45 Freq: Status: Active Protocol: Document 01/02/21 14:23 LRN (Rec: 01/02/21 15:08 LRN [id number]) Current Condition History of Current Condition Onset Date 6 months Current Complaints Urinary urgency is the primary problem. Now and again will leak. History of Current Condition Urinary urgency. Has gradually gotten worse over the years and now she feels her organs are further south than they use to be. Prior Treatments and Tests Chiropractic treatment for years for low back pain. Developmental History Developmental History 1 child 31 yrs ago, vaginal without complications. Treatment Goals Patient/Caregiver Goals Pt goal is: not be triggered to urinate when walking by bathroom. to decrease trigger responses (pulling into house, walking into a cold room). 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 Wears pantiliners all the time , since youth. Current Functional Impairments (Reported) Functional Limitations- ADL's Urinating every hour in mornings. In afternoons not as frequent. Occasionally wets underwear. Most of the time barely makes it to the bathroom. Urinates 10x/day and 1x in evening. Personal Factors Other Personal Factors That May Effect Works FT @ [employer] early Therapy/Recovery morning shift, with break every 2 hours. PT-OP-C Subjective Start: 12/29/20 17:45 Freq: Status: Active Protocol: Document 04/17/21 15:00 LRN (Rec: 04/17/21 16:39 LRN [id number]) OP-PT Subjective Patient Comments Patient Comments States she has not had a problem with leakage and can still walk by a bathroom without having an urge to urinate. Pt feels she has meet the goals she wanted to meet and is ready to be placed on a home program. PT-OP-I Pelvic Floor Start: 12/29/20 17:45 Freq: Status: Active Protocol: Document 04/17/21 15:00 LRN (Rec: 04/17/21 16:39 LRN [id number]) Pelvic Floor Assessment Pelvic Clock Pelvic Clock 6-9 Atrophy Pelvic Clock Other 9-11 O'clock: 2/5 7-8 O'clock 0/5 1-6 O'Clock 3/5. Prolapse Cystocele Grade 2 Rectocele Grade 2 Contraction Ability Manual Muscle Testing Left 3 Manual Muscle Testing Right 1 Manual Muscle Testing Anterior 2 Manual Muscle Testing Posterior 3 Muscle Endurance (Seconds) 10 Comments Pelvic Floor Comments Supine: No bulging of bladder with coughing. Bulging of rectum with cough. No bulging when PF contraction is performed with cough. PT-OP-J Posture/Palpation/Skin Start: 12/29/20 17:45 Freq: Status: Active Protocol: Document 01/02/21 14:23 LRN (Rec: 01/02/21 15:08 LRN [id number]) Posture Evaluation Position Standing Head/C-Spine Posture Forward Head T-Spine Posture Flattened L-Spine Posture Increased Lordosis Pelvis Posture Anteriorly Tilted PT-OP-K Range of Motion Start: 12/29/20 17:45 Freq: Status: Active Protocol: Document 01/02/21 14:23 LRN (Rec: 01/02/21 15:08 LRN [id number]) Lumbar Spine Range of Motion Lumbar Spine Active Degrees Testing Position Standing Flexion 75 Extension 15 Lateral Flexion Left 15 Lateral Flexion Right 12 Hip Goniometric Range of Motion Hip Right Passive Testing Position Supine Flexion w/Knee Flexed 120 Straight Leg Raise 85 Internal Rotation 50 External Rotation 40 Left Passive Testing Position Supine Flexion w/Knee Flexed 110 Straight Leg Raise 80 Internal Rotation 35 External Rotation 50 PT-OP-M Strength Start: 12/29/20 17:45 Freq: Status: Active Protocol: Document 01/02/21 14:23 LRN (Rec: 01/02/21 15:08 LRN [id number]) Trunk Strength Trunk Manual Muscle Testing Testing Position Supine, Sidelie, Prone Comments Lacks core control w/MMT of LE 's. Hip Strength Hip Manual Muscle Testing Right Flexion (L2) 5 Normal Extension (S1) 3 Fair Abduction 5 Normal Adduction 3 Fair External Rotation 5 Normal Internal Rotation 5 Normal Left Flexion (L2) 3+ Fair+ Extension (S1) 3 Fair Abduction 5 Normal Adduction 3+ Fair+ External Rotation 3 Fair Internal Rotation 5 Normal PT-OP-Q Treatments Start: 12/29/20 17:45 Freq: Status: Active Protocol: Document 04/17/21 15:00 LRN (Rec: 04/17/21 16:39 LRN [id number]) Therapeutic Exercises Supine Exercises Bridge with ball squeeze/exhale/PF Supine Exercise Name Bridge with ball squeeze/ exhale/PF/R hip AD Side right Reps/Minutes 10x 3 Comments Manual resist for R hip AD, cuing for R hip AD and exhale with bridge. Bridge w/Exhale//knees in/PF Supine Exercise Name Bridge/Exhale/Knees in/PF contraction Side bilateral Reps/Minutes 10x 3 Comments Cuing for exhale & PF contraction w/lift Antonino SLR w/TA Supine Exercise Name SLR w/TA Side bilateral Reps/Minutes 6 Comments Pt able to maintain core stability with SLR. PF Long holds Supine Exercise Name 10 sec holds with vaginal electrode and digital stim Reps/Minutes 12' Comments See PF Assessment, reviewed with pt results PF Quick Flicks Supine Exercise Name PF Quick Flicks w/vaginal electrode & digital stim Reps/Minutes 12' Comments See PF Assessment, reviewed with pt results Sidelying Exercises Hip AD w/PF Sidelying Exercise Name Hip AD w/PF contraction Side right Reps/Minutes 10x 3 TA/Clamshell Sidelying Exercise Name Clamshell w/TA/core stab/PF contraction Side bilateral Reps/Minutes 10x 3 10x2 quick flicks, 1x Long (holding PF for 10 lifts ) Comments v cuing for pt to use same side hand to assist with ER & ecc contr lowering Self-Care/Home Management Treatment Education Other Education Reviewed automatic TA contraction with laughing. Activities Self-Care/Home Management Activities Issued and maximally reviewed HEP: 1) Bridging w/ball squeeze, hip in slight IR, with proper breathing (exhale on lift) and PF contraction; 2) Bridging w/ball squeeze, resistetd hip AD, proper breathing (exhale on lift) and PF contraction. PT-OP-T Assessment and Plan Start: 12/29/20 17:45 Freq: Status: Active Protocol: Document 04/17/21 15:00 LRN (Rec: 04/17/21 16:39 LRN [id number]) Physical Therapy Assessment Goals Three Impairment Decreased PF strength (0-1/5) Impairment 7-10 O'Clock rated 1/5, 2-6 O'Clock 0/5. Short Term Goal (STG) Improve PF strength to 2/5 with pt will be able to walk by her bathroom without having to stop to urinate. (02/27/21: Not having the urge to urinate when walking by the bathroom at home). (04/17/21: 1-6 O'Clock 3/5, 7-8 O'clock 0/5, 9-11 O'clock: 2/ 5 STG Duration 02/01/21 (02/27/21: MET GOAL , except 7-8 O'clock strength is 0/5) Senior Care Goal (LTG) Improve PF strength to 3/5 with pt able to hold a PF contraction no less than 3 secs and perform 5-6 quick squeezes prior to fatigue, for delaying urination with the delay technique. (02/27/21: Using the Urinary delay techinque when needed). LTG Duration 03/17/21 (03/06/21: MET GOAL) One Impairment Lacks appropriate self care HEP. Registered Nurse Hh Case Manager Goal (LTG) Pt will be independent in a self care HEP of hip/LB flexibility ex's, PF strengthening (focus on anterior, and lateral gaffney). (01/30/21: Added to HEP R hip ER stretch) (02/06/21: Added to HEP: hip AD, Ext & ER-clamshell w/PF/ TA strengthening). (02/13/21: Added Pelvic rotation LTR, R BKFO w/TA/PF & L SLR). 02/27/21: Added Hamstring stretch, PF strengthening with hip AD & AB-clamshell). (04/17/21: Added posterior PF and right posterolateral PF strengthening) LTG Duration 06/04/21 (04/17/21: MET GOAL) Assessment Summary Assessment With long hold PF contractions the pt provides generally palpable, although weak, contraction around the PF clock for 10 secs. With Quick Flick contractions she has notable weakness at the PF clock 7-8 (indicating R sided weakness). Except for at the 7-8 PF clock the pt has improved her PF strength and endurance, although weakness is present at 0-2/5 (normal is 3/5). Pt has mild loss of core stability with active and resistive SLR and with clamshell ex bilaterally. Hip ER/IR strength is normal bilaterally. She demonstrates automatic TA tightening with laughter showing improved core stability. The pt has home ex's to promote improved PF strength and further resolution of her cystocele and rectocele if she is able to continue her exercises and perform proper breathing patterns with ADLs and exercise. The pt feels she is ready to be placed on a HEP , and I am in agreement; therefore the pt will be discharged to her independent HEP today. Physical Therapy Plan Frequency and Duration Plan of Care Start Date 01/02/21 Plan of Care End Date 06/04/21 Discharge Physical Therapy Discharge Reasons Goals Met Discharge Comments The pt has improved in her PF strength with reduced symptoms of urinary incontinence, but she still demonstrates mild general weakness. She demonstrates greater weakness of her posterior PF today with a visible rectocele with coughing, that can be controlled when performing a PF contraction. The pt would benefit from physical therapy in the future if she is not able to main her PF strength. Thank you for your referral .
== END 2021-05-20 04:13 ==
LOC: PHYS 15:00
PROVIDERS: PCP Family Medicine; Referring Provider Specialist; Visit Provider Specialist
DX: N81.11 Cystocele, midline (principal); R39.15 Urgency of urination
CPT/HCPCS: 97110; 97140; 97161; 97535

== ENCOUNTER → 2022-06-09 10:04 | Outpatient (CLI) | payer OTHER, SELFPAY ==
[2022-06-09 11:07] LABS: Add Manual Diff / Slide Review NO; Basophils Absolute Auto 100 /uL (0-100); Basophils Percent Auto 1.2 % (0-2); Eosinophils Absolute Auto 100 /uL (0-450); Eosinophils Percent Auto 2.5 % (2-4); Hematocrit 47.1 % (36-46); Hemoglobin 15.8 g/dL (12.0-16.0); Lymphocytes Absolute Auto 1500 /uL (1100-4500); Lymphocytes Percent Auto 28.5 % (25-40); Mean Corpuscular HGB Conc 33.5 % (30-36); Mean Corpuscular Hemoglobin 29.2 PG (26-34); Monocytes Absolute Auto 400 /uL (0-900); Monocytes Percent Auto 7.3 % (3-14); Neutrophils Absolute Auto 3100 /uL (1500-7000); Neutrophils Percent Auto 60.5 % (50-75); Platelet Count 280 X10^3/uL (150-400); Red Blood Cell Count 5.41 X10^6/uL (4.0-5.2); Red Cell Distribution Width 13.4 % (11.6-14.8); White Blood Cell Count 5.1 X10^3/uL (4.5-11.0)
[2022-06-09 11:09] LABS: Alanine Aminotransferase 31 IU/L (<35); Albumin 4.2 g/dL (3.5-5.0); Albumin Globulin Ratio 1.3 (1.0-2.8); Alkaline Phosphatase 91 U/L (38-126); Aspartate Aminotransferase 32 IU/L (14-36); BUN Creatinine Ratio 21.1 (6-22); Bilirubin Total 0.6 mg/dL (0.2-1.3); Blood Urea Nitrogen 15 mg/dL (7-17); Calcium 8.8 mg/dL (8.4-10.2); Carbon Dioxide 25 mmol/L (22-32); Chloride 106 mmol/L (98-107); Cholesterol 231 mg/dL (140-199); Estimated Glomerular Filt Rate > 60 mL/min (>60); Globulin 3.3 g/dL (1.7-4.1); Glucose 90 mg/dL (80-110); HDL Cholesterol 63 mg/dL (40-60); HEMOLYSIS < 15 (0-50); LDL Cholesterol Calculated 154 mg/dL (<100); Potassium 3.8 mmol/L (3.4-5.1); Sodium 138 mmol/L (137-145); Total Protein 7.5 g/dL (6.3-8.2); Triglycerides 68 mg/dL (35-150)
[2022-06-09 11:37] LABS: TSH w/ Reflex to FT4 0.86 uIU/mL (0.47-4.68)
[2022-06-09 15:15] LABS: Creatinine Urine Random 62.8 mg/dL
[2022-06-09 15:20] LABS: Microalbumin Urine Random < 0.6 mg/dL (0-1.6)
== END ==
PROVIDERS: PCP Family Medicine; Referring Provider Family Medicine; Visit Provider Family Medicine
DX: I10 Essential (primary) hypertension (principal)
CPT/HCPCS: 36415; 80053; 80061; 82043; 82570; 84443; 85025

== ENCOUNTER → 2022-06-14 16:22 | Outpatient (CLI) | payer OTHER, SELFPAY ==
[2022-06-15 13:58] LABS: Fecal Immunochemical Test Negative (Negative)
== END ==
PROVIDERS: PCP Family Medicine; Referring Provider Family Medicine; Visit Provider Family Medicine
DX: Z12.11 Encounter for screening for malignant neoplasm of colon (principal)
CPT/HCPCS: 82274

== ENCOUNTER → 2022-06-18 16:06 | Outpatient (CLI) | payer OTHER, SELFPAY ==
--- NOTE | 2022-06-18 16:07 | DI.MG.S_ITS ---
BILATERAL DIGITAL SCREENING MAMMOGRAM 3D/2D WITH CAD: 06/18/2022 CLINICAL: Routine screening. Comparison is made to exams dated: 03/12/2016 mammogram, 08/06/2008 mammogram, and 07/16/2007 mammogram - [facility]. There are scattered areas of fibroglandular density in both breasts (category b / 25%-50% glandular tissue). Current study was also evaluated with a Computer Aided Detection (CAD) system. There is a focal asymmetry in the right breast at 11 o'clock middle depth. IMPRESSION: INCOMPLETE: NEEDS ADDITIONAL IMAGING EVALUATION The focal asymmetry in the right breast most likely is a cyst or an intramammary node and is indeterminate. A diagnostic mammogram and ultrasound is recommended. Based on the Tyrer Cuzick model (a risk assessment model) the patient's lifetime risk is 6.8% and her 10 year risk is 2.7%. According to the ACR, ACS, and NCCN guidelines, an annual breast MRI exam along with mammogram is recommended if the patient's lifetime risk is 20% or greater. This exam was interpreted at Station ID: [id number]. NOTE: For mammograms, a report in lay terms will be sent to the patient. Approximately 15% of breast malignancies will not be visualized mammographically. In the management of a palpable breast mass, a negative mammogram must not discourage biopsy of a clinically suspicious lesion. Electronically Signed By: Heriberto Martins M.D. jr/:06/19/2022 14:09:03 letter sent: Additional Imaging Needed ACR BI-RADS Category 0: Incomplete 3340F
== END ==
PROVIDERS: PCP Family Medicine; Referring Provider Family Medicine; Visit Provider Family Medicine
DX: Z12.31 Encounter for screening mammogram for malignant neoplasm of breast (principal)
CPT/HCPCS: 77063; 77067

== ENCOUNTER → 2022-06-28 14:12 | Outpatient (CLI) | payer OTHER, SELFPAY ==
--- NOTE | 2022-06-28 14:13 | DI.US.S_ITS ---
PROCEDURE: US THYROID INDICATIONS: left thyroid fullness TECHNIQUE: Real-time scanning was performed of the thyroid gland, with image documentation. COMPARISON: None. FINDINGS: Right: Thyroid lobe measures 4.8 x 1.8 x 1.3 cm, and is homogeneous in echotexture. Left: Thyroid lobe measures 4.7 x 1.6 x 1.2 cm, and is homogenous in echotexture. Isthmus: Three mm thick. Nodule number: 1 Location: Right lateral midpole Size: 0.8 x 0.5 x 0.5 cm. Composition: Cystic Echogenicity: Anechoic Shape: wider than tall. Margins: Smooth Echogenic foci: None Total points: 0 ACR TI-RADS category: One, benign IMPRESSION: 1. Normal size thyroid gland with a benign cystic nodule in the right lobe. ACR TI-RADS definitions and recommendations: TI-RADS 1 (benign): 0 points. FNA not needed. TI-RADS 2 (not suspicious): 2 points. FNA not needed. TI-RADS 3 (mildly suspicious): 3 points. * FNA if 2.5 cm or larger, follow up if 1.5 cm or larger (at 1, 3, and 5 years). TI-RADS 4 (moderately suspicious): 4-6 points. * FNA if 1.5 cm or larger, follow up if 1 cm or larger (at 1, 2, 3, and 5 years). TI-RADS 5 (highly suspicious): 7 points or more. * FNA if 1 cm or larger, follow up if 0.5 cm or larger (every year for 5 years). Dictated by: Meli Liz M.D. on 06/28/2022 at 16:52 Approved by: Meli Liz M.D. on 06/28/2022 at 17:07
== END ==
PROVIDERS: PCP Family Medicine; Referring Provider Family Medicine; Visit Provider Family Medicine
DX: E04.1 Nontoxic single thyroid nodule (principal)
CPT/HCPCS: 76536

== ENCOUNTER → 2022-07-16 13:30 | Outpatient (CLI) | payer OTHER, SELFPAY ==
--- NOTE | 2022-07-16 13:31 | DI.MG.S_ITS ---
UNILATERAL RIGHT DIGITAL DIAGNOSTIC MAMMOGRAM 3D/2D WITH ADDITIONAL VIEWS: 07/16/2022 CLINICAL: Additional evaluation requested from prior study. Comparison is made to exams dated: 06/18/2022 mammogram, 03/12/2016 mammogram, and 08/06/2008 mammogram - [facility]. There are scattered areas of fibroglandular density in the right breast (category b / 25%-50% glandular tissue). There is a round focal asymmetry with a circumscribed margin in the right breast at 11 o'clock middle depth. No other significant masses or calcifications are seen in the breast. IMPRESSION: INCOMPLETE: NEEDS ADDITIONAL IMAGING EVALUATION The round focal asymmetry in the right breast most likely is a cyst or an intramammary node and is indeterminate. A targeted ultrasound is recommended and will immediately follow. Based on the Tyrer Cuzick model (a risk assessment model) the patient's lifetime risk is 6.8% and her 10 year risk is 2.7%. According to the ACR, ACS, and NCCN guidelines, an annual breast MRI exam along with mammogram is recommended if the patient's lifetime risk is 20% or greater. This exam was interpreted at Station ID: [id number]. NOTE: For mammograms, a report in lay terms will be sent to the patient. Approximately 15% of breast malignancies will not be visualized mammographically. In the management of a palpable breast mass, a negative mammogram must not discourage biopsy of a clinically suspicious lesion. Electronically Signed By: Alejandro Levy M.D. slc/:07/16/2022 14:24:29 ACR BI-RADS Category 0: Incomplete 3340F
--- NOTE | 2022-07-16 13:31 | DI.US.S_ITS ---
LIMITED ULTRASOUND OF RIGHT BREAST: 07/16/2022 CLINICAL: Patient returns today to evaluate a focal asymmetry in the right breast. Comparison is made to exams dated: 07/16/2022 mammogram, 06/18/2022 mammogram, and 03/12/2016 mammogram - [facility]. Real-time ultrasound of the right breast upper outer quadrant was performed. Vincent scale images of the real-time examination were reviewed. No significant abnormalities were seen sonographically in the right breast. IMPRESSION: BENIGN There is no sonographic evidence of malignancy. No ultrasound correlate identified. However, the cyst or lymph node on mammogram demonstrates long-term stability and is benign. Exam findings were conveyed to the patient. A 1 year screening mammogram is recommended. This exam was interpreted at Station ID: [id number]. Electronically Signed By: Alejandro Levy M.D. slc/:07/16/2022 14:43:54 letter sent: Normal Exam Ultrasound BI-RADS: 2 Benign
== END ==
PROVIDERS: PCP Family Medicine; Referring Provider Family Medicine; Visit Provider Family Medicine
DX: R92.8 Other abnormal and inconclusive findings on diagnostic imaging of breast (principal); N64.89 Other specified disorders of breast
CPT/HCPCS: 76642; 77065; G0279

== ENCOUNTER → 2023-07-20 11:53 | Outpatient (CLI) | payer OTHER, SELFPAY ==
[2023-07-20 12:43] LABS: Cholesterol 204 mg/dL (140-199); HDL Cholesterol 64 mg/dL (40-60); LDL Cholesterol Calculated 129 mg/dL (<100); Triglycerides 54 mg/dL (35-150)
== END ==
LOC: LAB 11:55
PROVIDERS: PCP Family Medicine; Referring Provider Family Medicine; Visit Provider Family Medicine
DX: E78.2 Mixed hyperlipidemia (principal)
CPT/HCPCS: 36415; 80061

== ENCOUNTER → 2024-11-12 15:18 | Outpatient (CLI) | payer OTHER, SELFPAY | LOC: CAR 15:19 | PROVIDERS: PCP Family Medicine; Referring Provider Family Medicine; Visit Provider Family Medicine | DX: E78.2 Mixed hyperlipidemia (principal); I10 Essential (primary) hypertension; R00.0 Tachycardia, unspecified; R00.2 Palpitations | CPT/HCPCS: 93246 ==

== ENCOUNTER → 2025-02-26 08:04 | Outpatient (CLI) | payer OTHER, SELFPAY ==
--- NOTE | 2025-02-26 08:06 | DI.MG.S_ITS ---
MM screening mammo BI: 02/26/2025. BI-RADS: 1 CLINICAL: 64-year old female for bilateral screening mammogram. Tyrer-Cuzick lifetime risk of 5.9%. No personal or first-degree family history of breast cancer. PRIOR EXAMS 07/16/2022, 06/18/2022, 03/12/2016. MAMMOGRAPHY TECHNIQUE: 2D and 3D (tomosynthesis) digital mammographic views obtained, with additional images as needed for full coverage. Current study was also evaluated with a Computer Aided Detection (CAD) system. DENSITY B. There are scattered areas of fibroglandular density. MAMMOGRAPHY FINDINGS Bilateral: No suspicious mass, asymmetry, microcalcification, or other abnormality seen. IMPRESSION: * No evidence of malignancy. RECOMMENDATIONS Bilateral * Annual screening mammography. OVERALL ASSESSMENT CATEGORY BI-RADS-1: Negative. The [employer] recommends annual screening mammography beginning at age 40 for women with average risk of breast cancer. ELECTRONICALLY SIGNED: Johanne Gibbs M.D. on 02/28/2025 at 11:41:50 PM PT Interpreting Station ID: [id number]
== END ==
PROVIDERS: PCP Family Medicine; Referring Provider Family Medicine; Visit Provider Family Medicine
DX: Z12.31 Encounter for screening mammogram for malignant neoplasm of breast (principal)
CPT/HCPCS: 77063; 77067

== ENCOUNTER → 2025-04-10 10:36 | Outpatient (CLI) | payer OTHER, SELFPAY ==
[2025-04-10 12:18] LABS: Add Manual Diff / Slide Review NO; Hematocrit 46.3 % (36-46); Hemoglobin 15.6 g/dL (12.0-16.0); Lymphocytes Absolute Auto 1300 /uL (1100-4500); Mean Corpuscular HGB Conc 33.8 % (30-36); Mean Corpuscular Hemoglobin 29.6 PG (26-34); Mean Corpuscular Volume 87.5 fL (80-100); Platelet Count 266 X10^3/uL (150-400)
[2025-04-10 12:43] LABS: Alanine Aminotransferase 16 IU/L (<35); Albumin 4.4 g/dL (3.5-5.0); Albumin Globulin Ratio 1.6 (1.0-2.8); Alkaline Phosphatase 91 U/L (38-126); Blood Urea Nitrogen 20 mg/dL (7-17); Calcium 9.3 mg/dL (8.4-10.2); Carbon Dioxide 25 mmol/L (22-32); Chloride 103 mmol/L (98-107); Cholesterol 231 mg/dL (140-199); Estimated Glomerular Filt Rate > 60 mL/min (>60); Globulin 2.7 g/dL (1.7-4.1); Glucose 93 mg/dL (70-99); HDL Cholesterol 75 mg/dL (40-60); HEMOLYSIS < 15 (0-50); Potassium 5.0 mmol/L (3.4-5.1); Sodium 136 mmol/L (137-145); Total Protein 7.1 g/dL (6.3-8.2); Triglycerides 81 mg/dL (35-150)
[2025-04-10 13:08] LABS: TSH w/ Reflex to FT4 1.24 uIU/mL (0.47-4.68)
== END ==
PROVIDERS: PCP Family Medicine; Referring Provider Family Medicine; Visit Provider Family Medicine
DX: Z00.00 Encounter for general adult medical examination without abnormal findings (principal); Z12.11 Encounter for screening for malignant neoplasm of colon; I10 Essential (primary) hypertension; E78.2 Mixed hyperlipidemia; R00.0 Tachycardia, unspecified; E04.1 Nontoxic single thyroid nodule
CPT/HCPCS: 36415; 80053; 80061; 82043; 82172; 82274; 82570; 84443; 85025